=== PATIENT | female | born 1930 | race Caucasian/White ===

== ENCOUNTER → 2016-07-20 | Outpatient (CLI) | payer MEDICARE ==
[~2016-07-20] MED LIST: AC500T PO; ACHD5005 PO; ACTOS PO; BARIUM SUSPENSION 105% (LIQUID POLIBAR PLUS) 240 ML/DOSE PO ONE; BARIUM SUSPENSION 60% (LIQUID EZ PAQUE) 240 ML DOSE PO ONE; BSC10SU PR; CALC-80 PO; CLCX200C PO; CYCL10TA9 PO; DILT240C PO; DOCU-161 PO; ESOM20SU PO; FLC1T PO; GABA600T2 PO; GLIM4TAB PO; GLUC500C2 PO; HYDR-34 PO; LEVO125T6 PO; LISI10TA PO; MAGN-47 PO; MELO-195 PO; METH4TAB PO; MTF500T PO; MTX2.5T PO; OXB5T PO; PNT40TEC PO; PRAM0.252 PO; PRAM0.5T4 PO; PRAM1TAB3 PO; Prednisone PO; QUIN324C PO; RPGL2T PO; SNN187T PO; TRAM50TA2 PO; WRF2.5T PO
--- NOTE | 2016-07-20 11:45 | Diagnostic Imaging Report ---
EXAMINATION: Barium swallow double-contrast. INDICATION: Dysphagia Fluoroscopy time: One minute and 15 seconds TECHNIQUE: Logistics Administrator image of the chest was performed. Subsequently, the patient was given gas forming granules for oral ingestion followed by thick and thin barium to drink. Swallowing through the esophagus was observed with fluoroscopy and overhead images, as well as multiple spot images in the upright and prone positions, were taken. FINDINGS: Logistics Administrator image of the chest demonstrate hyperinflated clear lungs. No significant reflux is seen during the study. Some tertiary contractions and mild incomplete emptying of the esophagus particularly in the prone position are noted. This is commonly seen at the patient's age with no mechanical obstruction. The esophagus is normal in caliber and contour. There is no diverticulum or filling defect to suggest a mass. There is however mild irregularity in the distal esophagus mucosa may relate to esophagitis. There is a small hiatal hernia demonstrated. IMPRESSION: 1. Small hiatal hernia. 2. Mild motility dysfunction. 3. Suggestion of esophagitis. Dictated by: Dictated on workstation # [id number]
== END ==
LOC: RAD 10:30
PROVIDERS: ATTEND Internal Medicine
DX: R13.10 Dysphagia, unspecified (principal); K44.9 Diaphragmatic hernia without obstruction or gangrene
CPT/HCPCS: 74220

== ENCOUNTER → 2016-12-09 | Outpatient (CLI) | payer MEDICARE ==
[~2016-12-09] MED LIST changes: -BARIUM SUSPENSION 105% (LIQUID POLIBAR PLUS) 240 ML/DOSE PO ONE; -BARIUM SUSPENSION 60% (LIQUID EZ PAQUE) 240 ML DOSE PO ONE
--- NOTE | 2016-12-09 17:36 | Diagnostic Imaging Report ---
Two views of the right hip. INDICATION: Injury. FINDINGS: No fracture, dislocation, or radiopaque foreign body. There are mild sclerotic degenerative changes and mild joint space narrowing seen. Degenerative sclerotic changes in the right SI joint and symphysis pubis seen. IMPRESSION: Mild degenerative changes. Dictated by: Dictated on workstation # [id number]
--- NOTE | 2016-12-09 18:00 | Diagnostic Imaging Report ---
Three views of the lumbar spine. INDICATION: Trauma. FINDINGS: There is advanced degenerative change seen. The vertebral body heights are preserved. The alignment of the posterior spinal line is not well assessed as the posterior margin of L5 is not well delineated on this radiograph in part due to fusion hardware involving L5 and S1 levels. There is at other levels from T12 through L4 normal alignment of the posterior spinal line. There is straightening of the upper lumbar spine curvature. Severe degenerative changes at the L2-L3 and L3-L4 discs with vacuum phenomenon seen. There is also vacuum phenomenon and moderate degenerative changes at the L1-L2 and L4-L5 levels. Degenerative changes in the SI joints noted. IMPRESSION: L5-S1 fusion changes with hardware in place seen. These partially obscure and limit assessment of the posterior spinal line evaluation in the lower lumbar spine. Advanced degenerative disc changes worst at the L2-L3 level seen. Dictated by: Dictated on workstation # [id number]
== END ==
LOC: RAD 12:12
PROVIDERS: ATTEND Internal Medicine
DX: M51.36 Other intervertebral disc degeneration, lumbar region (principal); Z98.1 Arthrodesis status
CPT/HCPCS: 72100; 73502

== ENCOUNTER → 2017-01-31 | Emergency (ER) | payer MEDICARE ==
[~2017-01-31] VITALS: Ht 162.6 cm; Wt 79.4 kg
--- OUTSIDE RECORDS SUMMARY | 2017-01-31 10:21 | XMS REPORT | Continuity of Care Document ---
Author Author [facility] Organization [facility] Address Unknown Phone Unavailable Allergies Active Description Code Type Severity Reaction Onset Reported/Identified Relationship to Patient Clinical Status Yes No Known Drug Allergies [id number] Drug Allergy Unknown N/ A 09/12/2008 Medications Problems Date Dx Coded Attending Type Code Diagnosis Diagnosed By 09/20/2010 Ot 244.9 09/20/2010 Ot 250.00 09/20/2010 Ot 285.9 09/20/2010 Ot 305.1 09/20/2010 Ot 401.9 09/20/2010 Ot 714.0 09/20/2010 Ot V43.65 09/20/2010 Ot V54.81 09/20/2010 Ot V57.1 09/20/2010 Ot V57.21 2013 NOAH GARCIA MD E Ot 244.9 HYPOTHYROIDISM NOS 2013 NOAH GARCIA MD E Ot 250.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, TYPE II OR UNSPEC TY 2013 NOAH GARCIA MD E Ot 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 2013 NOAH GARCIA MD E Ot 305.1 TOBACCO USE DISORDER 2013 NOAH GARCIA MD E Ot 333.94 RESTLESS LEGS SYNDROME 2013 NOAH GARCIA MD E Ot 401.9 HYPERTENSION NOS 2013 NOAH GARCIA MD E Ot 496 CHR AIRWAY OBSTRUCT NEC 2013 NOAH GARCIA MD E Ot 530.81 ESOPHAGEAL REFLUX 2013 NOAH GARCIA MD Ot 714.0 RHEUMATOID ARTHRITIS 2013 NOAH GARCIA MD E Ot V04.81 ND FOR PROPHYLACTIC VACCIN AND INOCULATI 2013 NOAH GARCIA MD E Ot V43.65 KNEE JOINT REPLACEMENT STATUS 2013 NOAH GARCIA MD Ot V54.81 AFTERCARE FOLLOWING JOINT REPLACEMENT 2013 NOAH GARCIA MD Ot V57.89 REHABILITATION PROC NEC 11/29/2013 NOAH GARCIA MD Ot 244.9 HYPOTHYROIDISM NOS 11/29/2013 RADHA HERNANDEZ, NOAH Melchor Ot 250.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, TYPE II OR UNSPEC TY 11/29/2013 RADHA HERNANDEZ, NOAH Melchor Ot 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 11/29/2013 NOAH AGRCIA MD Ot 305.1 TOBACCO USE DISORDER 11/29/2013 NOAH GARCIA MD Ot 496 CHR AIRWAY OBSTRUCT NEC 11/29/2013 NOAH GARCIA MD Ot 530.81 ESOPHAGEAL REFLUX 11/29/2013 NOAH GARCIA MD Ot 564.00 UNSPEC CONSTIPATION 11/29/2013 NOAH GARCIA MD Ot 714.0 RHEUMATOID ARTHRITIS 11/29/2013 NOAH GARCIA MD Ot 715.09 GENERAL OSTEOARTHROSIS 11/29/2013 NOAH GARCIA MD Ot V57.89 REHABILITATION PROC NEC 11/29/2013 NOAH GARCIA MD Ot V58.78 AFTERCARE POST SURGERY MUSCULOSKELETAL S 12/12/2013 JUAN C BOCANEGRA DO Ot 244.9 HYPOTHYROIDISM NOS 12/12/2013 JUAN C BOCANEGRA DO Ot 250.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, TYPE II OR UNSPEC TY 12/12/2013 JUAN C BOCANEGRA DO Ot 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 12/12/2013 JUAN C BOCANEGRA DO Ot 338.18 OTHER ACUTE POSTOPERATIVE PAIN 12/12/2013 JUAN C BOCANEGRA DO Ot 401.9 HYPERTENSION NOS 12/12/2013 JUAN C BOCANEGRA DO Ot 496 CHR AIRWAY OBSTRUCT NEC 12/12/2013 JUAN C BOCANEGRA DO Ot 530.81 ESOPHAGEAL REFLUX 12/12/2013 JUAN C BOCANEGRA DO Ot 564.00 UNSPEC CONSTIPATION 12/12/2013 JUAN C BOCANEGRA DO Ot 714.0 RHEUMATOID ARTHRITIS 12/12/2013 JUAN C BOCANEGRA DO Ot 715.90 OSTEOARTHROS NOS-UNSPEC 12/12/2013 JUAN C BOCANEGRA DO Ot 724.00 SPINAL STENOSIS NOS 12/12/2013 JUAN C BOCANEGRA DO Ot 724.2 LUMBAGO 07/23/2014 Ot V76.12 07/23/2014 Ot 715.36 07/23/2014 Ot 717.40 07/23/2014 Ot 727.09 07/23/2014 Ot 959.11 07/23/2014 Ot 959.2 07/23/2014 Ot E000.8 07/23/2014 Ot E030 07/23/2014 Ot E849.0 07/23/2014 Ot E888.9 07/23/2014 Ot 715.33 07/23/2014 Ot 959.3 07/23/2014 Ot E000.8 07/23/2014 Ot E030 07/23/2014 Ot E849.0 07/23/2014 Ot E888.9 07/23/2014 Ot V58.61 07/23/2014 Ot V58.83 07/23/2014 Ot V58.61 07/23/2014 Ot V58.83 07/23/2014 Ot V58.61 07/23/2014 Ot V58.83 07/23/2014 Ot V58.61 07/23/2014 Ot V58.83 07/23/2014 Ot 793.81 07/23/2014 Ot V76.12 07/23/2014 Ot 793.80 07/23/2014 Ot 793.81 07/23/2014 Ot 793.81 07/23/2014 Ot 793.81 07/23/2014 Ot V67.09 07/23/2014 JUAN C BOCANEGRA DO Ot V67.9 07/23/2014 JUAN C BOCANEGRA DO Ot 729.5 07/25/2014 Ot V76.12 07/25/2014 Ot 715.36 07/25/2014 Ot 717.40 07/25/2014 Ot 727.09 07/25/2014 Ot 959.11 07/25/2014 Ot 959.2 07/25/2014 Ot E000.8 07/25/2014 Ot E030 07/25/2014 Ot E849.0 07/25/2014 Ot E888.9 07/25/2014 Ot 715.33 07/25/2014 Ot 959.3 07/25/2014 Ot E000.8 07/25/2014 Ot E030 07/25/2014 Ot E849.0 07/25/2014 Ot E888.9 07/25/2014 Ot V58.61 07/25/2014 Ot V58.83 07/25/2014 Ot V58.61 07/25/2014 Ot V58.83 07/25/2014 Ot V58.61 07/25/2014 Ot V58.83 07/25/2014 Ot V58.61 07/25/2014 Ot V58.83 07/25/2014 Ot 793.81 07/25/2014 Ot V76.12 07/25/2014 Ot 793.80 07/25/2014 Ot 793.81 07/25/2014 Ot 793.81 07/25/2014 Ot 793.81 07/25/2014 Ot V67.09 07/25/2014 JUAN C BOCANEGRA DO Ot V67.9 07/25/2014 JUAN C BOCANEGRA DO Ot 729.5 07/26/2014 Ot V76.12 07/26/2014 Ot 715.36 07/26/2014 Ot 717.40 07/26/2014 Ot 727.09 07/26/2014 Ot 959.11 07/26/2014 Ot 959.2 07/26/2014 Ot E000.8 07/26/2014 Ot E030 07/26/2014 Ot E849.0 07/26/2014 Ot E888.9 07/26/2014 Ot 715.33 07/26/2014 Ot 959.3 07/26/2014 Ot E000.8 07/26/2014 Ot E030 07/26/2014 Ot E849.0 07/26/2014 Ot E888.9 07/26/2014 Ot V58.61 07/26/2014 Ot V58.83 07/26/2014 Ot V58.61 07/26/2014 Ot V58.83 07/26/2014 Ot V58.61 07/26/2014 Ot V58.83 07/26/2014 Ot V58.61 07/26/2014 Ot V58.83 07/26/2014 Ot 793.81 07/26/2014 Ot V76.12 07/26/2014 Ot 793.80 07/26/2014 Ot 793.81 07/26/2014 Ot 793.81 07/26/2014 Ot 793.81 07/26/2014 Ot V67.09 07/26/2014 JUAN C BOCANEGRA DO Ot V67.9 07/26/2014 JUAN C BOCANEGRA DO Ot 729.5 07/31/2014 JUAN C BOCANEGRA DO Ot 786.50 08/07/2014 JUAN C BOCANEGRA DO Ot 786.50 07/20/2016 Ot 793.80 UNSPEC ABNORMAL MAMMOGRAM 07/20/2016 Ot 793.81 MAMMOGRAPHIC MICROCLACIFICATION 07/20/2016 Ot 793.81 MAMMOGRAPHIC MICROCLACIFICATION 07/20/2016 Ot 793.81 MAMMOGRAPHIC MICROCLACIFICATION 07/20/2016 Ot V67.09 SURGERY FOLLOW-UP, OTHER SURGERY 07/20/2016 JUAN C BOCANEGRA DO Ot V67.9 FOLLOW-UP EXAM NOS 07/20/2016 JUAN C BOCANEGRA DO Ot 729.5 PAIN IN LIMB 07/20/2016 JUAN C BOCANEGRA DO Ot 786.50 CHEST PAIN NOS 08/04/2016 JUAN C BOCANEGRA DO Ot K44.9 DIAPHRAGMATIC HERNIA WITHOUT OBSTRUCTION 08/04/2016 JUAN C BOCANEGRA DO Ot R13.10 DYSPHAGIA, UNSPECIFIED 12/21/2016 JUAN C BOCANEGRA DO Ot M51.36 OTHER INTERVERTEBRAL DISC DEGENERATION , 12/21/2016 JUAN C BOCANEGRA DO Ot Z98.1 ARTHRODESIS STATUS Procedures Results Encounters ACCT No. Visit Date/Time Discharge Status Pt. Type Provider Facility Loc./Unit Complaint [id number] 12/09/2016 12:12:00 2016 23:59:59 CLS Outpatient JUAN C BOCANEGRA DO [facility] RAD TRAUMA [id number] 07/20/2016 10:30:00 2016 23:59:59 CLS Outpatient JUAN C BOCANEGRA DO [facility] RAD DYSPHAGIA [id number] 07/25/2014 06:30:00 2014 23:59:59 CLS Outpatient JUAN C BOCANEGRA DO [facility] CARD CHEST PAIN [id number] 12/07/2013 19:15:00 2013 13:20:00 DIS Inpatient JUAN C BOCANEGRA DO [facility] SURGICAL POST OP BACK PAIN [id number] 11/24/2013 11:58:00 2013 12:45:00 DIS Inpatient NOAH GARCIA MD [facility] IRF POST SURGERY [id number] 05/17/2013 14:59:00 2012 23:59:59 CLS Outpatient JUAN C BOCANEGRA DO [facility] RAD CALF PAIN [id number] 03/13/2013 15:32:00 2012 13:51:00 DIS Inpatient RADHA HERNANDEZ, NOAH Melchor [facility] IRF R TOTAL KNEE REPLACMENT THERAPY [id number] 11/21/2012 13:17:00 2012 23:59:59 CLS Outpatient JUAN C BOCANEGRA DO [facility] RAD SIX MONTH FOLLOW-UP [id number] 07/23/2014 11:14:00 Document Registration [id number] 03/14/2012 12:58:00 Document Registration [id number] 09/09/2011 12:15:00 Document Registration [id number] 07/29/2011 10:13:00 Document Registration [id number] 02/10/2011 14:01:00 Document Registration [id number] 01/22/2011 13:07:00 Document Registration [id number] 10/02/2010 14:30:00 Document Registration [id number] 09/29/2010 10:55:00 Document Registration [id number] 09/25/2010 12:30:00 Document Registration [id number] 09/22/2010 10:00:00 Document Registration [id number] 09/14/2010 13:45:00 Document Registration [id number] 09/04/2009 14:54:00 Document Registration [id number] 07/22/2009 11:46:00 Document Registration [id number] 05/03/2009 14:09:00 Document Registration [id number] 04/26/2009 14:30:00 Document Registration
--- NOTE | 2017-01-31 10:58 | Diagnostic Imaging Report ---
INDICATION: Pain and decreased range of motion. FINDINGS: There is moderate arthrosis of the acromioclavicular joint. There are also degenerative changes of the glenohumeral joint. There are bone anchors in the humeral head. There is no fracture or dislocation. The right lung is clear. Soft tissues are unremarkable. IMPRESSION: Degenerative changes, otherwise unremarkable. Dictated by: Dictated on workstation # [id number]
--- NOTE | 2017-01-31 11:05 | ED Fall/Injury ---
General Chief Complaint: Head/Cervical Problems Stated Complaint: FALL/R SHOULDER PAIN Nursing Triage Note: PT TO ED 8 PER W/C, STATES FELL 2-3WEEKS AGO AND HAS CONTINUED WORSENING PAIN IN R SIDE OF NECK AND R POST SHOULDER AREA Source: patient Exam Limitations: other (LIMITED HISTORIAN ABOUT PMH AND CURRENT COMPLAINT) History of Present Illness Time seen by provider: 10:30 Initial Comments PT ARRIVES VIA POV FROM HOME STATES SHE FELL 2-3 WEEKS AGO WHILE IN HER KITCHEN PT STATES SHE DOESN'T KNOW WHAT MADE HER FALL, BUT THINKS SHE LANDED ON HER BUTTOCKS, AND MIGHT HAVE THEN HIT THE BACK OF HER HEAD--NOT EXACTLY SURE/DOESN' T REMEMBER DETAILS, BUT DENIES LOSS OF CONSCIOUSNESS PT C/O PERSISTENT PAIN TO RIGHT POSTERIOR NECK AND POSTERIOR SHOULDER/SCAPULAR AREA SINCE THEN NO PARESTHESIAS OR MOTOR DEFICITS NO VISION CHANGES NO NAUSEA/VOMITING HAS NOT SOUGHT CARE UNTIL TODAY, AND SYMPTOMS ARE NO DIFFERENT IN ANY WAY TOOK 2 HYDROCODONE LAST NIGHT BUT HAS NOT TAKEN ANYTHING FOR PAIN TODAY. STATES HYDROCODONE HELPS PT CHRONICALLY TAKES VARIOUS PAIN MEDICATIONS, AND MUSCLE RELAXANTS--STATES SHE HAS "3 KINDS OF ARTHRITIS" PCP: DR. BOCANEGRA Allergies and Home Medications Allergies Coded Allergies: No Known Drug Allergies (Verified , 09/12/08) Home Medications Docusate Sodium 100 Mg Capsule, 100 MG PO, (Reported) Folic Acid 1 Mg Tab, 1 MG PO DAILY, (Reported) Gabapentin 600 Mg Tablet, 600 MG PO BID, (Reported) Glimepiride 4 Mg Tablet, 4 MG PO BID, (Reported) Hydrocodone Bit/Acetaminophen 1 Tab Tab, 1 TAB PO Q4HR PRN for PAIN, #60 Prescribed by: NOAH GARCIA on 11/29/13 0839 Levothyroxine Sodium 125 Mcg Tablet, 1 EACH PO DAILY, (Reported) Lisinopril 10 Mg Tablet, 10 MG PO DAILY, (Reported) Pramipexole Di-Hcl 0.5 Mg Tablet, 0.5 MG PO 1 TAB DAILY @1600, (Reported) Pramipexole Di-Hcl 1 Mg Tablet, 1 MG PO HS, #30 Prescribed by: SERGO MERCADO on 12/08/13 0117 [Prednisone] 5 MG TAB, 5 MG PO DAILY@0700 for 5 Days Prescribed by: JUAN C BOCANEGRA on 12/12/13 1004 Constitutional: no symptoms reported Eyes: No Symptoms Reported Ears, Nose, Mouth, Throat: no symptoms reported Respiratory: no symptoms reported Cardiovascular: no symptoms reported Gastrointestinal: no symptoms reported Genitourinary: no symptoms reported Musculoskeletal: see HPI Skin: no symptoms reported Psychiatric/Neurological: No Symptoms Reported, Denies Headache, Denies Numbness, Denies Paresthesia, Denies Seizure, Denies Tingling, Denies Tremors, Denies Weakness Past Cggfboi-Wrwrzs-Lctxal Hx Patient Social History Alcohol Use: Denies Use Recreational Drug Use: No Smoking Status: Current Everyday Smoker (1 PPD) Type Used: Cigarettes Recent Foreign Travel: No Contact w/Someone Who Travel: No Recent Infectious Disease Expo: No Recent Hopitalizations: Yes (L TKR IN [place]) Immunizations Up To Date Date of Pneumonia Vaccine: Feb 12, 2013 Date of Influenza Vaccine: Mar 14, 2013 Surgeries HX Surgeries: Yes (APPY, HYSTERECTOMY HEMORRHOIDECTOMY, ENDOCRINE SURGERY, BACK SURGERY; RIGHT TOTAL KNEE REPLACEMENT) Surgeries: Appendectomy, Hysterectomy, Joint Replacement, Orthopedic, Rectal Respiratory Hx Respiratory Disorders: Yes Respiratory Disorders: COPD Cardiovascular Hx Cardiac Disorders: Yes Cardiac Disorders: Hypertension, Valvular Heart Disease Neurological Hx Neurological Disorders: No Reproductive System Hx Reproductive Disorders: No Sexually Transmitted Disease: No HIV/AIDS: No Female 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, 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 Genitourinary Hx Genitourinary Disorders: Yes Genitourinary Disorders: Bladder Infection Gastrointestinal Hx Gastrointestinal Disorders: Yes Gastrointestinal Disorders: Hemorrhoids Musculoskeletal Hx Musculoskeletal Disorders: Yes (RHEUMATOID AND OSTEOARTHRITIS) Musculoskeletal Disorders: Arthritis, Chronic Back Pain Endocrine Hx Endocrine Disorders: Yes Endocrine Disorders: Hypothyroidsim, Diabetes, Non-Insulin dep HEENT HX ENT Disorders: No Cancer Hx Cancer: No Psychosocial Hx Psychiatric Problems: No Integumentary HX Skin/Integumentary Disorder: No Blood Transfusions Hx Blood Disorders: No Adverse Reaction to a Blood Tr: No Family Medical History Family Medial History: Cancer 19 FATHER (luekemia) G8 SISTER (tumor) Family history: Arthritis G8 BROTHER Family history: Cardiovascular disease 19 MOTHER Family history: Hypertension 19 MOTHER Physical Exam Vital Signs Vital Sign - Last 12Hours 01/31/17 10:25 Temp 97.7 Pulse 71 Resp 16 B/P (MAP) 151/72 Pulse Ox 96 Capillary Refill : Less Than 3 Seconds General Appearance: WD/WN, no apparent distress, other (WALKS WITH A CANE WITHOUT DIFFICULTY. PT VERY TALKATIVE AND DOES NOT APPEAR TO BE IN ANY DISCOMFORT. WELL-GROOMED. STRONG ODOR OF CIGARETTES) Neck: full range of motion, supple, tender lateral (ON RIGHT), No tender midline Cardiovascular: regular rate, rhythm, systolic murmur (3/6) Respiratory: chest non-tender, normal breath sounds, no respiratory distress, no accessory muscle use Peripheral Pulses: 1+ Dorsalis Pedis (R), 1+ Left Dors-Pedis (L), 1+ Radial Pulses (R), 1+ Radial Pulses (L) Gastrointestinal: normal bowel sounds, non tender, soft Back: no CVA tenderness, no vertebral tenderness, other (TENDERNESS TO RIGHT TRAPEZIUS MUSCLE AREA AND SUPERIOR ASPECT OF RIGHT SCAPULA AND POSTERIOR ASPECT OF RIGHT SHOULDER) Extremities: normal inspection, no pedal edema, no calf tenderness, normal capillary refill Neurologic/Psychiatric: drop forger II-XII nml as tested, no motor/sensory deficits, alert, normal mood/affect, oriented x 3 Skin: normal color, warm/dry Tenisha Coma Score Best Eye Response: (4) Open Spontaneously Best Verbal Response: (5) Oriented Best Motor Response: (6) Obeys Commands Tenisha Total: 15 Progress/Results/Core Measures Results/Orders My Orders Orders - ELDER PARRY DO Ct Head/Cervical Spine Wo (01/31/17 10:35) Shoulder, Right, 3 Views (01/31/17 10:35) Vital Signs/I&O Vital Sign - Last 12Hours 01/31/17 10:25 Temp 97.7 Pulse 71 Resp 16 B/P (MAP) 151/72 Pulse Ox 96 Blood Pressure Mean: 98 Diagnostic Imaging Comments XRAYS RIGHT SHOULDER--NO ACUTE PROCESS, DEGENERATIVE CHANGES--PER RADIOLOGIST REPORT @ 1105 CT HEAD AND CERVICAL SPINE--NO ACUTE PROCESS, CHRONIC DEGENERATIVE CHANGES IN CERVICAL SPINE--PER DR. KUMAR VIA PHONE AT 1153 Reviewed: Reviewed by Me Departure Impression Impression: Primary Impression: Status post fall Additional Impressions: Cervical myofascial strain Posterolateral cervical muscle strain Strain of cervical portion of right trapezius muscle Head contusion Disposition: 01 HOME, SELF-CARE Condition: Stable Departure-Patient Inst. Referrals: JUAN C BOCANEGRA DO (PCP/Family) Primary Care Physician Patient Instructions: Minor Head Injury (DC), Cervical Muscle Strain (DC), Neck Sprain (DC) Add. Discharge Instructions: CONTINUE YOUR REGULAR MEDICATIONS, INCLUDING YOUR PAIN MEDICATIONS PRESCRIBED FOLLOW UP WITH YOUR DR IN 7-10 DAYS FOR FURTHER CARE All discharge instructions reviewed with patient and/or family. Voiced understanding. ELDER PARRY DO Jan 31, 2017 11:05
[2017-01-31 12:04] VITALS: BP 151/72
--- NOTE | 2017-01-31 12:09 | Diagnostic Imaging Report ---
PROCEDURE: CT head and CT cervical spine without contrast. TECHNIQUE: Multiple contiguous axial images were obtained through the brain and cervical spine without the use of intravenous contrast. Sagittal and coronal reformations through the cervical spine were then performed. INDICATION: Fell, head and neck pain. COMPARISON: No previous studies available for comparison. CT HEAD: There is no mass, shift of the midline or hemorrhage to suggest an acute intracranial abnormality. The ventricles are not abnormally dilated. There is cortical atrophy. The degree of atrophy is consistent with the patient's age. There are also vague areas of low density in the periventricular white matter bilaterally. These findings are nonspecific but may be secondary to encephalomalacia from microvascular ischemia. The bone windows show no sign of a fracture or of a destructive lesion. There is mucosal thickening of the ethmoid sinuses. The sinuses are otherwise generally clear. The orbits are symmetrical and within normal limits. IMPRESSION: 1. There is no evidence for an acute intracranial abnormality. 2. If clinical concern regarding an underlying abnormality persists, MRI would be recommended for further study. 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 There is 8.8 x 1.1 x 1.4 cm lucency near the interface of the C5 and C6 vertebral bodies. This is of uncertain etiology. This does not have the appearance of a destructive lesion although the margins of this are not entirely smooth. This could represent a benign process such as a cyst. It would be less likely that this is secondary to a marrow replacement process such as neoplastic disease. If further imaging is desired, then MRI would be recommended. There is narrowing of the disc space at C6-7. There is also mild central stenosis at this level and there is narrowing of the neural foramen bilaterally, particularly on the right. There remainder of the cervical spine is unremarkable for a high-grade central stenosis. There is no fracture or acute bony abnormality appreciated. There is no sign of retropharyngeal edema. The thyroid gland is not well-visualized and may be atrophic or surgically absent. The lung apices are clear. IMPRESSION: 1. There is no evidence for acute bony abnormality. 2. 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 3. The area of lucency within the fused bodies of C5 and C6 is of uncertain etiology. Considerations and recommendations as above. 4. There is degenerative disc and bony disease at C6-7 and there is mild central stenosis at this level with narrowing of the neural foramen bilaterally, particularly on the right. 5. These results were discussed with Dr. Gonzalez in the ER at the time of this dictation. Dictated by: Dictated on workstation # [id number]
== END ==
LOC: EDUNIT# 10:14 → ER 10:16
DX: S16.1XXA Strain of muscle, fascia and tendon at neck level, initial encounter (principal); S29.012A Strain of muscle and tendon of back wall of thorax, initial encounter; S00.93XA Contusion of unspecified part of head, initial encounter; E03.9 Hypothyroidism, unspecified; E11.9 Type 2 diabetes mellitus without complications; M06.9 Rheumatoid arthritis, unspecified; I10 Essential (primary) hypertension; J44.9 Chronic obstructive pulmonary disease, unspecified; F17.210 Nicotine dependence, cigarettes, uncomplicated; Z96.661 Presence of right artificial ankle joint; Z90.710 Acquired absence of both cervix and uterus; W18.30XA Fall on same level, unspecified, initial encounter
CPT/HCPCS: 70450; 72125; 73030; 99282

== ENCOUNTER 2017-07-07 21:48 | Observation (INO) | payer MEDICARE ==
[~2017-07-07] VITALS: Ht 162.6 cm; Wt 72.6 kg
[~2017-07-07 21:48] MED LIST changes: -ACYC800T PO; -ASPI-983 PO; -CELE-63 PO; -DOCU100C37 PO; -FOLI1TAB24 PO; -GABA-488 PO; -HYDR-3820 PO; -LISI10TA2 PO; -METH2.5T PO; -NITR0.4T42 SL; -OXYB5TAB9 PO; -PRAM0.5T2 PO
[2017-07-07 22:08] LABS: BASOPHILS % (AUTO) 1 % (0-10); EOSINOPHILS # (AUTO) 0.1 10^3/uL (0.0-0.3); EOSINOPHILS % (AUTO) 1 % (0-10); HEMATOCRIT 37 % (35-52); HEMOGLOBIN 12.7 G/DL (11.5-16.0); LYMPHOCYTES % (AUTO) 15 % (12-44); MEAN CORPUSCULAR HEMOGLOBIN 32 PG (25-34); MEAN CORPUSCULAR HGB CONC 34 G/DL (32-36); MEAN CORPUSCULAR VOLUME 93 FL (80-99); MEAN PLATELET VOLUME 9.9 FL (7.4-10.4); MONOCYTES # (AUTO) 0.6 X 10^3 (0.0-1.0); MONOCYTES % (AUTO) 9 % (0-12); NEUTROPHILS # (AUTO) 4.8 X 10^3 (1.8-7.8); NEUTROPHILS % (AUTO) 75 % (42-75); PLATELET COUNT 128 10^3/uL (130-400); RED BLOOD COUNT 3.98 10^6/uL (4.35-5.85); RED CELL DISTRIBUTION WIDTH 13.3 % (10.0-14.5); WHITE BLOOD COUNT 6.4 10^3/uL (4.3-11.0)
[2017-07-07 22:22] LABS: ALANINE AMINOTRANSFERASE 27 U/L (0-55); ALBUMIN 3.3 GM/DL (3.2-4.5); ALKALINE PHOSPHATASE 72 U/L (40-136); BILIRUBIN,TOTAL 0.7 MG/DL (0.1-1.0); BUN/CREATININE RATIO 35; CALCIUM 8.2 MG/DL (8.5-10.1); CARBON DIOXIDE 24 MMOL/L (21-32); CHLORIDE 100 MMOL/L (98-107); CREATINE KINASE 169 U/L (29-168); CREATININE SERUM 0.78 MG/DL (0.60-1.30); GFR ESTIMATED > 60; GLUCOSE 171 MG/DL (70-105); POTASSIUM 4.4 MMOL/L (3.6-5.0); SODIUM 133 MMOL/L (135-145)
--- NOTE | 2017-07-07 22:40 | ED General ---
General Chief Complaint: Trauma-Non Activation Stated Complaint: FALL Nursing Triage Note: pt here per ems for multiple falls over the past couple days. pt bs for ems is 58. ems reports giving 1 amp d50 iv in route. Nursing Sepsis Screen: No Definite Risk Source of Information: Patient Exam Limitations: No Limitations History of Present Illness Date Seen by Provider: Jul 07, 2017 Time Seen by Provider: 21:55 Initial Comments Here with report of fall yesterday and was seen by her primary care Dr. enciso. He sent her for x-ray of the right hip which was negative. Currently she went home after that sitting in the chair when her daughter left. Later she was found on the floor next to her bed but not in the bed. Patient does not know how she got onto the floor. She denies pain although does report weakness as well as feels like she is not clearheaded. She is on medications for a new onset shingles outbreak. Denies dysuria or diarrhea. Denies breathing problems or chest pain. Location Injury Occurred: home residence Timing/Duration: 4-6 Hours Severity: Mild Associated Systoms: No Cough, No Fever/Chills, Malaise, No Nausea/Vomiting, No Shortness of Air, Weakness Allergies and Home Medications Allergies Coded Allergies: No Known Drug Allergies (Verified , 09/12/08) Home Medications Docusate Sodium 100 Mg Capsule, 100 MG PO, (Reported) Folic Acid 1 Mg Tab, 1 MG PO DAILY, (Reported) Gabapentin 600 Mg Tablet, 600 MG PO BID, (Reported) Glimepiride 4 Mg Tablet, 4 MG PO BID, (Reported) Hydrocodone Bit/Acetaminophen 1 Tab Tab, 1 TAB PO Q4HR PRN for PAIN, #60 Prescribed by: NOAH GARCIA on 11/29/13 0839 Levothyroxine Sodium 125 Mcg Tablet, 1 EACH PO DAILY, (Reported) Lisinopril 10 Mg Tablet, 10 MG PO DAILY, (Reported) Pramipexole Di-Hcl 0.5 Mg Tablet, 0.5 MG PO 1 TAB DAILY @1600, (Reported) Pramipexole Di-Hcl 1 Mg Tablet, 1 MG PO HS, #30 Prescribed by: SERGO MERCADO on 12/08/13 0117 [Prednisone] 5 MG TAB, 5 MG PO DAILY@0700 for 5 Days Prescribed by: JUAN C BOCANEGRA on 12/12/13 1004 Constitutional: see HPI, No chills, No fever, weakness EENTM: no symptoms reported Respiratory: No cough, No short of breath Cardiovascular: No chest pain, No edema, syncope Gastrointestinal: No diarrhea, No vomiting Genitourinary: no symptoms reported Musculoskeletal: see HPI All Other Systems Reviewed Negative Unless Noted: Yes Past Hwxzgeq-Dshmmh-Xfskpr Hx Patient Social History Alcohol Use: Occasionally Uses Alcohol Beverage of Choice: Beer Recreational Drug Use: No Smoking Status: Current Everyday Smoker Type Used: Cigarettes Recent Foreign Travel: No Contact w/Someone Who Travel: No Recent Infectious Disease Expo: No Recent Hopitalizations: Yes (L TKR IN [place]) Physical Abuse: No Sexual Abuse: No Mistreated: No Fear: No Immunizations Up To Date Date of Pneumonia Vaccine: Feb 12, 2013 Date of Influenza Vaccine: Mar 14, 2013 Surgeries History of Surgeries: Yes (APPY, HYSTERECTOMY HEMORRHOIDECTOMY, ENDOCRINE SURGERY, BACK) Surgeries: Appendectomy, Hysterectomy, Joint Replacement, Orthopedic, Rectal Respiratory History of Respiratory Disorde: Yes Respiratory Disorders: COPD Cardiovascular History of Cardiac Disorders: Yes Cardiac Disorders: Hypertension, Valvular Heart Disease Neurological History of Neurological Disord: No Reproductive System Hx Reproductive Disorders: No Sexually Transmitted Disease: No HIV/AIDS: No Female Reproductive Disorders: Denies MANAGER History: Hysterectomy, Menopausal Genitourinary Genitourinary Disorders: Bladder Infection Gastrointestinal History of Gastrointestinal Di: Yes Gastrointestinal Disorders: Hemorrhoids Musculoskeletal History of Musculoskeletal Dis: Yes (RHEUMATOID AND OSTEOARTHRITIS, RLS) Musculoskeletal Disorders: Arthritis, Chronic Back Pain Endocrine History of Endocrine Disorders: Yes Endocrine Disorders: Hypothyroidsim, Diabetes, Non-Insulin dep Cancer History of Cancer: No Psychosocial History of Psychiatric Problem: No Suicide Risk Score: 0 Integumentary History of Skin or Integumenta: No Blood Transfusions History of Blood Disorders: No Adverse Reaction to a Blood Tr: No Reviewed Nursing Assessment Reviewed/Agree w Nursing PMH: Yes Family Medical History Family Medial History: Cancer 19 FATHER (luekemia) G8 SISTER (tumor) Family history: Arthritis G8 BROTHER Family history: Cardiovascular disease 19 MOTHER Family history: Hypertension 19 MOTHER Physical Exam Vital Signs Vital Sign - Last 12Hours Capillary Refill : Less Than 3 Seconds General Appearance: No Apparent Distress, WD/WN HEENT: PERRL/EOMI, Pharynx Normal Neck: Non Tender, Supple Respiratory: Lungs Clear, Normal Breath Sounds Cardiovascular: Regular Rate, Rhythm, No Murmur Gastrointestinal: Non Tender, Soft Back: Normal Inspection, No CVA Tenderness, No Vertebral Tenderness Extremity: Normal Range of Motion, Non Tender, Other (denies pain in her hips but is not sure. Does move both lower extremities without difficulty.) Neurologic/Psychiatric: Alert, Oriented x3 Skin: Warm/Dry, Rash (large herpes zoster rash involving the left flank and hip from midline back around to the front midline.) Progress/Results/Core Measures Suspected Sepsis Recent Fever Within 48 Hours: No Infection Criteria Present: None New/Unexplained Altered Menta: No Sepsis Screen: No Definite Risk Sepsis Diagnosis: SIRS Temperature:98.0 Pulse: 79 Respiratory Rate: 20 Laboratory Tests 07/07/17 21:55: White Blood Count 6.4 Blood Pressure 154 /69 Mean: 97 Laboratory Tests 07/07/17 21:55: Creatinine 0.78, Platelet Count 128L, Total Bilirubin 0.7 Results/Orders Lab Results Laboratory Tests Test 07/07/17 21:55 07/07/17 23:05 Range/Units White Blood Count 6.4 4.3-11.0 10^3/uL Red Blood Count 3.98 L 4.35-5.85 10^6/uL Hemoglobin 12.7 11.5-16.0 G/DL Hematocrit 37 35-52 % Mean Corpuscular Volume 93 80-99 FL Mean Corpuscular Hemoglobin 32 25-34 PG Mean Corpuscular Hemoglobin Concent 34 32-36 G/DL Red Cell Distribution Width 13.3 10.0-14.5 % Platelet Count 128 L 130-400 10^3/uL Mean Platelet Volume 9.9 7.4-10.4 FL Neutrophils (%) (Auto) 75 42-75 % Lymphocytes (%) (Auto) 15 12-44 % Monocytes (%) (Auto) 9 0-12 % Eosinophils (%) (Auto) 1 0-10 % Basophils (%) (Auto) 1 0-10 % Neutrophils # (Auto) 4.8 1.8-7.8 X 10^3 Lymphocytes # (Auto) 1.0 1.0-4.0 X 10^3 Monocytes # (Auto) 0.6 0.0-1.0 X 10^3 Eosinophils # (Auto) 0.1 0.0-0.3 10^3/uL Basophils # (Auto) 0.0 0.0-0.1 10^3/uL Sodium Level 133 L 135-145 MMOL/L Potassium Level 4.4 3.6-5.0 MMOL/L Chloride Level 100 98-107 MMOL/L Carbon Dioxide Level 24 21-32 MMOL/L Anion Gap 9 5-14 MMOL/L Blood Urea Nitrogen 27 H 7-18 MG/DL Creatinine 0.78 0.60-1.30 MG/DL Estimat Glomerular Filtration Rate > 60 BUN/Creatinine Ratio 35 Glucose Level 171 H 70-105 MG/DL Calcium Level 8.2 L 8.5-10.1 MG/DL Total Bilirubin 0.7 0.1-1.0 MG/DL Aspartate Amino Transf (AST/SGOT) 28 5-34 U/L Alanine Aminotransferase (ALT/SGPT) 27 0-55 U/L Alkaline Phosphatase 72 40-136 U/L Total Creatine Kinase 169 H 29-168 U/L C-Reactive Protein High Sensitivity 2.34 H 0.00-0.50 MG/DL Total Protein 6.0 L 6.4-8.2 GM/DL Albumin 3.3 3.2-4.5 GM/DL Urine Color YELLOW Urine Clarity CLEAR Urine pH 5 5-9 Urine Specific [place] 1.020 1.016-1.022 Urine Protein 2+ H NEGATIVE Urine Glucose (UA) 2+ H NEGATIVE Urine Ketones 1+ H NEGATIVE Urine Nitrite NEGATIVE NEGATIVE Urine Bilirubin NEGATIVE NEGATIVE Urine Urobilinogen NORMAL NORMAL MG/DL Urine Leukocyte Esterase 1+ H NEGATIVE Urine RBC (Auto) NEGATIVE NEGATIVE Urine RBC NONE /HPF Urine WBC 0-2 /HPF Urine Squamous Epithelial Cells 0-2 /HPF Urine Crystals PRESENT H /LPF Urine Calcium Oxalate Crystals LARGE H /LPF Urine Bacteria NEGATIVE /HPF Urine Casts NONE /LPF Urine Mucus NEGATIVE /LPF Urine Culture Indicated NO My Orders Orders - KIARA ELLISON MD Cbc With Automated Diff (07/07/17 22:01) Comprehensive Metabolic Panel (07/07/17 22:01) Creatine Kinase (07/07/17 22:01) Hs C Reactive Protein (07/07/17 22:01) Ua Culture If Indicated (07/07/17 22:01) Ct Head Wo (07/07/17 22:01) Ekg Tracing (07/07/17 22:40) Hydrocodone/Apap 7.5/325 Tab (Lortab 7. (07/08/17 00:11) Vital Signs/I&O Vital Sign - Last 12Hours 07/07/17 07/07/17 22:06 22:06 Temp 98.0 98.0 Pulse 79 79 Resp 20 20 B/P (MAP) 154/69 (97) 154/69 (97) Pulse Ox 96 96 Intake and Output 07/08/17 00:00 Intake Total 1000 ml Balance 1000 ml Capillary Refill : Less Than 3 Seconds Blood Pressure Mean: 97 Progress Note : Progress Note Seen and evaluated. IV by EMS with 1 L normal saline running. Labs, UA, CT head and x-rays of the pelvis and hips bilateral. Patient's family like to hold on the x-ray of the pelvis and hips given her x-ray today was negative. She has had a fall in the interim that she is unable to completely describe which was the reason for ordering x-rays. Given that she is moving both lower extremities without the appearance of difficulty or pain we will hold on x-rays per their request at this time. Reevaluate that as time goes on to see if she needs it. Monitor patient. 0005: Evaluation complete and no significant findings other than persistent weakness and bilateral lower extremity pain noted. Does have history of restless leg syndrome. She is unsure she can walk. We did attempt to walk her and she is unable to take more than 2 steps without not being a little to stand anymore. Due to the concerns of weakness and the significant large shingles outbreak on the left flank, we will admit the patient at least for observation. Patient is very concerned about observation visit and would like inpatient. We will have care management team evaluate for feasibility of inpatient visit. Patient also may benefit from inpatient rehabilitation. Hydrocodone 7.5/325 one tab by mouth given for pain and we will continue this. Patient is also very concerned about medication cost and has brought her meds with her and would like to have those verified that she can take her own home medicines to decrease cost if possible. She'll discuss that with the inpatient doctor in the morning as well as we will discuss this with admitting nursing staff tonight. ECG Initial ECG Impression Date: Jul 07, 2017 Initial ECG Impression Time: 23:08 Initial ECG Rate: 102 Initial ECG Rhythm: S.Tach Comment Sinus tachycardia with LVH and interventricular conduction delay. Left axis deviation. No evidence of ST elevation DC. Change from August 2008 with increasing interventricular conduction delay and worsening left axis deviation. Interpreted by me. Diagnostic Imaging Diagonstic Imaging: CT Plain Films/CT/US/NM/MRI: head Comments No acute intracranial process. Generalized atrophy and stable chronic small vessel disease. Departure Communication (Admissions) Time/Spoke to Admitting Phy: 00:04 Impression Impression: Primary Impression: Shingles outbreak Qualified Codes: B02.8 - Zoster with other complications Additional Impressions: Generalized weakness Bilateral leg pain Disposition: ADMITTED INPATIENT Condition: Stable Admissions Decision to Admit Reason: Admit from ER (General) Decision to Admit/Date: Jul 08, 2017 Time/Decision to Admit Time: 00:04 Departure-Patient Inst. Referrals: JUAN C BOCANEGRA DO (PCP/Family) Primary Care Physician KIARA ELLISON MD Jul 07, 2017 22:40
[2017-07-07 23:10] LABS: BILIRUBIN,URINE NEGATIVE (NEGATIVE); CLARITY,URINE CLEAR; COLOR,URINE YELLOW; GLUCOSE, URINE (UA) 2+ (NEGATIVE); KETONES,URINE 1+ (NEGATIVE); LEUKOCYTE ESTERASE ,URINE 1+ (NEGATIVE); NITRITE,URINE NEGATIVE (NEGATIVE); PH,URINE 5 (5-9); PROTEIN,URINE 2+ (NEGATIVE); UROBILINOGEN,URINE NORMAL (NORMAL)
[2017-07-07 23:19] LABS: BACTERIA,URINE NEGATIVE /HPF; CALCIUM OXALATE CRYSTALS,UR LARGE /LPF; SQUAMOUS EPITHELIAL CELL,UR 0-2 /HPF; WBC,URINE 0-2 /HPF
[2017-07-08] MEDS ORDERED: HYDROcodone/APAP 7.5 MG/325 MG (LORTAB, LORCET PLUS) TABLET PO ONE (00:11)
[2017-07-08] MEDS ORDERED: HYDROcodone/APAP 7.5 MG/325 MG (LORTAB, LORCET PLUS) TABLET PO STA (00:42)
[2017-07-08 01:40] VITALS: BP 104/52
[2017-07-08] MEDS ORDERED: HYDROcodone/APAP 5 MG/325 MG (LORTAB) TAB PO PRN (02:30)
[2017-07-08] MEDS: NS IV 1000 ML 1,000 ML IV SCH ×2 (02:30→16:45)
[2017-07-08 04:25] VITALS: BP_SYST 113; BP_SYST 146; BP_DIAS 58; BP_DIAS 74
[2017-07-08 06:26] LABS: BASOPHILS % (AUTO) 1 % (0-10); EOSINOPHILS # (AUTO) 0.1 10^3/uL (0.0-0.3); EOSINOPHILS % (AUTO) 2 % (0-10); HEMATOCRIT 38 % (35-52); HEMOGLOBIN 13.4 G/DL (11.5-16.0); LYMPHOCYTES # (AUTO) 1.4 X 10^3 (1.0-4.0); LYMPHOCYTES % (AUTO) 22 % (12-44); MEAN CORPUSCULAR HEMOGLOBIN 33 PG (25-34); MEAN CORPUSCULAR HGB CONC 35 G/DL (32-36); MEAN CORPUSCULAR VOLUME 93 FL (80-99); MEAN PLATELET VOLUME 10.1 FL (7.4-10.4); MONOCYTES # (AUTO) 0.6 X 10^3 (0.0-1.0); MONOCYTES % (AUTO) 10 % (0-12); NEUTROPHILS # (AUTO) 4.2 X 10^3 (1.8-7.8); NEUTROPHILS % (AUTO) 66 % (42-75); PLATELET COUNT 134 10^3/uL (130-400); RED CELL DISTRIBUTION WIDTH 13.2 % (10.0-14.5); WHITE BLOOD COUNT 6.3 10^3/uL (4.3-11.0)
[2017-07-08 06:47] LABS: ALANINE AMINOTRANSFERASE 27 U/L (0-55); ALBUMIN 3.4 GM/DL (3.2-4.5); ALKALINE PHOSPHATASE 73 U/L (40-136); BILIRUBIN,TOTAL 0.7 MG/DL (0.1-1.0); BUN/CREATININE RATIO 32; CALCIUM 8.4 MG/DL (8.5-10.1); CARBON DIOXIDE 23 MMOL/L (21-32); CHLORIDE 103 MMOL/L (98-107); CREATININE SERUM 0.74 MG/DL (0.60-1.30); GFR ESTIMATED > 60; POTASSIUM 3.8 MMOL/L (3.6-5.0); SODIUM 137 MMOL/L (135-145); TOTAL PROTEIN 6.2 GM/DL (6.4-8.2)
[2017-07-08 06:55] LABS: GLUCOSE 48 MG/DL (70-105)
[2017-07-08] MEDS ORDERED: INFLUENZA TRIvalent 2017-2018 0.5 ML/45 MCG SYR IM ONE (07:15)
[2017-07-08] MEDS ORDERED: DEXTROSE 50% 50 ML (IMS) SYR ONE (07:17)
[2017-07-08] MEDS ORDERED: DEXTROSE 50% 50 ML (IMS) SYR IV ONE (07:30)
--- NOTE | 2017-07-08 08:01 | Diagnostic Imaging Report ---
PROCEDURE: CT head without contrast. TECHNIQUE: Multiple contiguous axial images were obtained through the brain without the use of intravenous contrast. INDICATION: Multiple falls over the past couple of days. COMPARISON: 01/31/2017 FINDINGS: There are diffuse atrophic changes with prominence of the ventricles and sulci. There are scattered areas of decreased attenuation, nonspecific but likely reflect changes of chronic small vessel ischemic disease. There is otherwise normal chu-white differentiation. No abnormal areas of attenuation to suggest edema from ischemia. There is no midline shift or mass effect. No evidence for acute intracranial hemorrhage or abnormal extra-axial fluid collection. Bony calvarium is intact. Paranasal sinuses are clear. Mastoid air cells also appear clear. IMPRESSION: 1. No CT evidence for acute intracranial abnormality. 2. Age-related atrophic changes with changes of small vessel ischemic disease. A preliminary report was provided by [employer]. Dictated by: Dictated on workstation # [id number]
[2017-07-08 08:58] VITALS: BP 125/72
[2017-07-08] MEDS ORDERED: ACYC800T PO (09:16)
[2017-07-08] MEDS ORDERED: HYDR-3820 PO (09:16)
[2017-07-08] MEDS ORDERED: LEVO125T6 PO (09:16)
[2017-07-08] MEDS ORDERED: OXYB5TAB9 PO (09:16)
[2017-07-08] MEDS ORDERED: ASPI-983 PO (09:16)
[2017-07-08] MEDS ORDERED: LISI10TA2 PO (09:16)
[2017-07-08] MEDS ORDERED: METH2.5T PO (09:16)
[2017-07-08] MEDS ORDERED: GLIM4TAB PO (09:16)
[2017-07-08] MEDS ORDERED: CELE-63 PO (09:16)
[2017-07-08] MEDS ORDERED: PRAM0.5T2 PO ×2 (09:16)
[2017-07-08] MEDS ORDERED: GABA-488 PO (09:16)
[2017-07-08] MEDS ORDERED: FOLI1TAB24 PO (09:16)
[2017-07-08] MEDS ORDERED: DOCU100C37 PO (09:27)
[2017-07-08] MEDS ORDERED: NITR0.4T42 SL (09:50)
--- NOTE | 2017-07-08 10:02 | History & Physical-Hospitalist ---
HPI History of Present Illness: HPI/Chief Complaint Pt is an 87yoCF with a PMH of HTN, NIDDMII, and shingles who presented to the ER after a fall in her home. She was seen in her PCP's office twice this week but yesterday after a fall at home. She had an RX done that showed no fractures. She returned home to and fell again. She was able to crawl over to her phone and call for help. She was found to be hypoglycemic per EMS. She was brought to the ER for evaluation and her blood sugar was normal. CT Head was done and was negative in acute process. She refused another XR of hip/pelvis. She felt too weak to stand and was admitted for obs. This morning she is fixated on making sure she does not get charged for her medicines and really provides no other history than that she was diagnosed with shingles this week. She refused to answer questions about her medical history or surgical history. I did call and discuss case with her PCP who expressed concerns about her ability to care for herself in her home. She has no children but her niece and nephew who live somewhat locally try to help care for her. She has no assigned DPOA and they have advised that she move to [facility] but she has adamantly refused. Source: patient Exam Limitations: clinical condition Date Seen 07/08/17 Time Seen by Provider: 09:30 Attending Physician Deandra Bourne DO PCP Kennedy Monsivais DO Referring Physician Date of Admission Jul 08, 2017 at 00:10 Home Medications & Allergies Home Medications Reviewed patient Home Medication Reconciliation Form Allergies Allergies Coded Allergies No Known Drug Allergies (Verified09/12/08) Past Bzudfql-Olauyg-Ltirxs Hx Patient Social History Employed/Student: retired Alcohol Use: Occasionally Uses Number of Drinks Today: AA Alcohol Beverage of Choice: Beer Recreational Drug Use: No Smoking Status: Unknown if Ever Smoked Type Used: Cigarettes Physical Abuse Screen: No Sexual Abuse: No Recent Foreign Travel: No Contact w/other who traveled: No Recent Hopitalizations: Yes ([facility] IN [place]) Recent Infectious Disease Expo: No Immunizations Up To Date Pediatric: No Date of Pneumonia Vaccine: Feb 12, 2013 Date of Influenza Vaccine: Mar 14, 2013 Seasonal Allergies Seasonal Allergies: No Surgeries Yes (APPY, HYSTERECTOMY HEMORRHOIDECTOMY, ENDOCRINE SURGERY, BACK) Appendectomy, Hysterectomy, Joint Replacement, Orthopedic, Rectal Respiratory Yes Currently Using CPAP: No Cardiovascular Yes Hypertension, Valvular Heart Disease Neurological No Reproductive System Hx Reproductive Disorders: No Sexually Transmitted Disease: No HIV/AIDS: No Female Reproductive Disorders: Denies BELLHOP History: Hysterectomy, Menopausal Genitourinary Bladder Infection Gastrointestinal Yes Hemorrhoids Musculoskeletal Yes (RHEUMATOID AND OSTEOARTHRITIS, RLS) Arthritis, Chronic Back Pain Endocrine History of Endocrine Disorders: Yes Endocrine Disorders: Hypothyroidsim, Diabetes, Non-Insulin dep HEENT Hearing Impairment: Hard of Hearing Cancer No Psychosocial History of Psychiatric Problem: No Integumentary History of Skin or Integumenta: No Blood Transfusions History of Blood Disorders: No Adverse Reaction to a Blood Tr: No Reviewed Nursing Assessment Reviewed/Agree w Nursing PMH: Yes Family Medical History Family Hx: Cancer 19 FATHER (luekemia) G8 SISTER (tumor) Family history: Arthritis G8 BROTHER Family history: Cardiovascular disease 19 MOTHER Family history: Hypertension 19 MOTHER Review of Systems ROS-Unable to Obtain: very limited due to patient's fixation on finances Constitutional: no symptoms reported EENTM: no symptoms reported Respiratory: no symptoms reported, No cough Cardiovascular: no symptoms reported Gastrointestinal: abdominal pain, No nausea, No vomiting Genitourinary: no symptoms reported Musculoskeletal: back pain Skin: rash Psychiatric/Neurological: No Symptoms Reported Physical Exam Physical Exam Vital Signs Vital Sign - Last 12Hours 07/08/17 00:29 O2 Delivery Room Air Capillary Refill : Less Than 3 Seconds General Appearance: No Apparent Distress, WD/WN Respiratory: Lungs Clear, No Accessory Muscle Use, No Respiratory Distress Cardiovascular: Regular Rate, Rhythm, No Murmur Gastrointestinal: Normal Bowel Sounds, Non Tender, Soft Neurologic/Psychiatric: Alert, Other (moves all extremities, oriented to place and person-refuses to answer other questions) Skin: Other (vesicles rash with superimposed apparent burn of left buttock- dermatomal, stops at midline) Results Results/Procedures Lab Laboratory Tests 07/07/17 21:55 07/08/17 06:20 Assessment/Plan Admission Diagnosis Debility Diagnosis/Problems Diagnosis/Problems (1) Generalized weakness Status: Acute Assessment & Plan: Likely multifactorial Has RA, OA, and now shingles with hypoglycemia Will have PT/OT assess her for potential IRU (2) Non-insulin dependent type 2 diabetes mellitus Assessment & Plan: Hypoglycemic this AM Will DC glimepiride Encourage three balanced meals a day Patient refusing to eat more than 1 meal (3) Essential (primary) hypertension Assessment & Plan: Well controlled on no medications currently (4) Shingles outbreak Status: Acute Assessment & Plan: Continue on acyclovir Qualifiers: Qualified Codes: B02.8 - Zoster with other complications (5) Hypothyroidism Status: Chronic Assessment & Plan: TSH WNL- continue home supplement (6) Discharge planning issues Assessment & Plan: Family and PCP in agreement that [facility] would be best place for her at discharge Patient adamantly refusing Will get cognitive evaluation to assure no underlying dementia Social work consulted, appreciate assistance Clinical Quality Measures DVT/VTE Risk/Contraindication: Risk Factor Score Per Nursin RFS Level Per Nursing on Admit: 4+=Very High NERDA ATKINS MD Jul 08, 2017 10:02 am
[2017-07-08] MEDS ORDERED: PATIENT MAY USE OWN MEDS, ALL MC SCH (10:15)
[2017-07-08] MEDS ORDERED: DOCUSATE SODIUM 100 MG (COLACE) CAP PO PRN (10:15)
[2017-07-08] MEDS ORDERED: NITROGLYCERIN 0.4 MG SL TABS BTL 25'S SL PRN (10:15)
[2017-07-08] MEDS: ACYCLOVIR 800MG TABLET PO SCH ×4 (10:22→21:13)
[2017-07-08] MEDS: OXYBUTYNIN (DITROPAN) 5 MG TAB PO SCH ×2 (11:14→21:12)
[2017-07-08] MEDS: lisINopril 10 MG (PRINIVIL) TAB PO SCH (11:15)
[2017-07-08] MEDS: GABAPENTIN 300 MG (NEURONTIN) CAP PO SCH ×2 (11:16→21:13)
[2017-07-08] MEDS: FOLIC ACID 1 MG TAB PO SCH (11:16)
[2017-07-08] MEDS: ASPIRIN E.C. 81 MG (ECOTRIN) TAB PO SCH (11:17)
--- NOTE | 2017-07-08 11:49 | Physical Therapy Progress Note ---
Therapy Progress Note PT attempted to assess patient LOF, however, patient declined stating, "I don't feel like it and I don't want too." PT attempted to educate patient on importance of participating with therapy and told patient's PT would return this afternoon to attempt and patient stated, "It won't do you any good." PT informed Dr. Ortez. 1 visit ref RAVI DÍAZ PT Jul 08, 2017 11:49
[2017-07-08 12:48] VITALS: BP 108/68
[2017-07-08] MEDS ORDERED: LIDOCAINE TOPICAL 4% 50 ML BTL TP ONE (13:30)
[2017-07-08] MEDS: HYDROcodone/APAP 10 MG/325 MG (LORTAB) TAB PO PRN (13:36)
--- NOTE | 2017-07-08 13:51 | Physical Therapy Evaluation ---
PT Evaluation-General Medical Diagnosis Admission Date Jul 08, 2017 at 00:10 Medical Diagnosis: Shingles Onset Date: Jul 08, 2017 Therapy Diagnosis Therapy Diagnosis: debility/weakness Height/Weight Height (Feet): 5 Height (Inches): 4.00 Weight (Pounds): 160 Weight (Ounces): 0.0 Precautions Precautions/Isolations: Contact Isolation, Droplet Isolation Weight Bear Status Right Lower Extremity: Right Weight Bearing/Tolerated Left Lower Extremity: Left Weight Bearing/Tolerated Referral Physician: Pérez Reason for Referral: Evaluation/Treatment Medical History Pertinent Medical History: HTN, Hypothroidism, OA, Rheumatoid Arthritis, Smoking Current History EMS secondary to multiple episodes of decreased Blood sugar resulting in a fall Reviewed History: Yes Social History Home: Single Level Current Living Status: Alone Prior/Core FIM Prior Level of Function Functional [place] Measure 0=Not Assessed/NA 4=Minimal Assistance 1=Total Assistance 5=Supervision or Setup 2=Maximal Assistance 6=Modified [place] 3=Moderate Assistance 7=Complete [place] Bed Mobility: 6 Transfers (B,C,W/C) (FIM): 6 Gait: 2 uses FWW short distances at home PT Evaluation-Current Subjective Patient agrees to PT this p.m. Pain Numeric Pain Scale: 5-Moderate Pain Location: Left Location Body Site: Side Pain Description: Burning Objective Patient Orientation: Normal For Age Problem Solving: Fair Attachments: IV ROM/Strength ROM Lower Extremities bilateral LE WNL Strength Lower Extremities right knee flexion/extension 4/5; hip flexion 3/5; DF/PF 4/5 left knee flexion/extension 4/5; hip flexion 3/5; DF/PF 4/5 Integumentary/Posture Integumentary multiple open wounds from shingles and laying on heating pad and burning skin where shingles are located. Bowel Incontinence: No Bladder Incontinence: No Posture trunk flexed posture Neuromuscular (Tone, Coordination, Reflexes) slightly diminished due to age and inactivity Sensory Vision: Wears Glasses Hearing: Impaired Sensation Right Lower Extremit: Impaired Sensation Left Lower Extremity: Impaired Transfers Functional [place] Measure 0=Not Assessed/NA 4=Minimal Assistance 1=Total Assistance 5=Supervision or Setup 2=Maximal Assistance 6=Modified [place] 3=Moderate Assistance 7=Complete [place] Transfers (B, C, W/C) (FIM): 4 Scootin Rollin Supine to/from Sit: 5 Sit to/from Stand: 4 CGA for safety Gait Mode of Locomotion: Walk Anticipated Mode of Locomotion: Walk Gait (FIM): 1 Distance (FIM): 1=up to 49 ft Distance: 25' Gait Level of Assist: 5 Gait Persons Needed: 1 Gait Assistive Device: FWW Comments/Gait Description trunk flexed posture, leaning on FWW on forearms to ambulate Balance Sitting Static: Normal Sitting Dynamic: Normal Standing Static: Fair Standing Dynamic: Fair Assessment/Needs 87 y.o. female, will benefit from short term skilled PT to address functional strength and mobility to improve current LOF. Patient was having difficulty at home with medications, timing and compliance. Rehab Potential: Guarded Post Rehab Potential-Barriers: age, DM, compliance PT Skilled Nursing Goals Dukey Rider Goals PT Skilled Nursing Goals Time Frame: Jul 14, 2017 Transfers (B,C,W/C) (FIM): 6 Gait (FIM): 2 Gait distance (FIM): 1=308-57 ft Distance: 100' Gait Level of Assist: 5 Gait Assistive Device: FWW Stairs (FIM): 5 # of Steps: 8 Stairs Level Of Assist: 5 PT Plan Problem List Problem List: Activity Tolerance, Safety Treatment/Plan Treatment Plan: Continue Plan of Care Treatment Plan: Bed Mobility, Education, Functional Activity [place], Functional Strength, Gait, Safety, Therapeutic Exercise Treatment Duration: Jul 14, 2017 Frequency: 6 times per week Estimated Hrs Per Day: .25 hour per day Patient and/or Family Agrees t: Yes Safety Risks/Education Patient Education: Gait Training Teaching Recipient: Patient Teaching Methods: Discussion Response to Teaching: Reinforcement Needed Discharge Recommendations Therapy D/C Recommendations: Physical Therapy Home Care, Senior Living Placement , Usp (TCU/NH) Time/GCodes Time In: 1300 Time Out: 1323 Total Billed Treatment Time: 23 Total Billed Treatment 1 visit EVModC 23 min G Codes Necessary: Yes PT/OT Therapy GCodes Therapy Functional Limitation: Physical Therapy Test(s)/Tool used to determine: Level of Assistance Scale Functional Limitation-Current Charge Code: MOBCUR Modifier: CK Functional Limitation-Goal Charge Code: MOBGOAL Modifier: RAVI DESOUZA PT Jul 08, 2017 13:51
--- NOTE | 2017-07-08 15:03 | ST Cognitive Linguistic Eval ---
Speech Evaluation-General Medical Diagnosis Shingles Onset Date: Jul 08, 2017 Therapy Diagnosis Therapy Diagnosis: Moderate Cognitive Impairment Precautions Precautions/Isolations: Contact Isolation, Droplet Isolation Referral Referring Physician: Dr. Belgica Ortez Reason for Referral: Evaluation/Treatment Cognitive Evaluation (Christopher Cognitive Assessment-Version One) Medical History Pertinent Medical History: HTN, Hypothroidism, OA, Rheumatoid Arthritis, Smoking Current History The patient was recently admitted to [facility] with a diagnosis of shingles, as well as, overall debility/weakness. Reviewed History: Yes Social History Current Living Status: Alone Speech PLF-Current Status Prior Level of Function The patient denied prior challenges or difficulty with cognitive function, including memory, problem solving, and ADL sequencing. Subjective The patient was sitting upright in recliner upon entrance. The patient had her dentures in her hand, therefore, the clinician asked if she could aid in placement. The patient stated, "I am going to put them away after you leave." The clinician offered to place them in a container for the patient, who stated, "No, I will do it after this." The patient was hesitant but agreeable to participation in the cognitive evaluation. Language Eval: Auditory Comprehends Simple Yes/No Ques: Functional (Simple.) Indent/Objects Multiple Hernandez: Functional Ident/Pics in Multiple Hernandez: Mild (The patient was able to name one of three black and white line images of animals.) Follows 1-Step Commands: Mild (Frequent repetition of instructions was required. The patient did state, "well, I couldn't hear you.") Language Eval: Verbal Language Completes Spontaneous Greeting: Functional Produces Auto, Serial Info: Functional Imitates Simple Words/Phrases: Mild (The patient was unable to repeat short phrases following clinician production.) Word Finding: Moderate (The patient was able to state five 'f' words (WNL = 11) .) Requests Basic Needs: Mild (The patient stated she wishes to place her dentures away, however, could not state where she wished to place them.) States Basic Personal Info: Functional Language Evaluation: Writing Copies/Traces: Mild Cognitive Patient Orientation The patient was oriented to month, year, place, and city. The patient could not state the day of week or date regardless of the presence of the in-room white board. Objective Cognitive Domain Attention: Mild (The patient was unable to complete serial seven subtraction stating, "I am just too tired after physical therapy. I don't want to try right now.") Memory: Mild (The patient was unable to recall any of five single words following a five minute delay.) Problem Solving: Mild Executive Functions: Moderate (The patient was unable to complete trail-making following maximum clinician cueing or cube copying.) Clock Drawing Severity Rating: Mild (The patient was able to draw the contour and numbers on a clock, however, could not place the hands in the accurate location.) Objective Formal/Standardized Tests Rudolph Cognitive Assessment (MoCA)- Version One Results The patient demonstrated a result of +15/30 on the MoCA- Version One correlating to a moderate cognitive impairment. The patient demonstrated deficits with executive functioning, naming, memory, and attention. Impression The patient displays a moderate cognitive impairment. The patient's largest deficit includes her delayed recall ability (memory), as well as, her overall awareness of her impairments. The patient does become somewhat defensive when increased difficulty is demonstrated throughout the tasks. Speech-Plan Treatment Plan Speech Therapy Treatment Plan: Discontinue ST Evaluation, only. Frequency: 1 time per week Estimated Hrs Per Day: Other Rehab Potential: Guarded Safety Risks/Education Teaching Recipient: Patient Teaching Methods: Discussion Response to Teaching: Reinforcement Needed Education Topics Provided: Results of MoCA Time Speech Therapy Time In: 14:30 Speech Therapy Time Out: 14:50 Total Billed Time: 20 Billed Treatment Time 1, SPSNDCOMP Speech GCodes Complexity Level Test(s)/Tool Used to Determine: Level of Assistance Scale Functional Limitation-Current Current: MEMCUR Modifier: CL Functional Limitation-Goal Goal: MEMGOAL Modifier: CL Functional Limitation-D/C Discharge: MEMDC Modifier: CL FLORYSANTINO ST Jul 08, 2017 15:03
--- NOTE | 2017-07-08 15:28 | Occupational Therapy Eval ---
OT Evaluation-General/PLF Medical Diagnosis Admission Date Jul 08, 2017 at 00:10 Medical Diagnosis: Shingles Onset Date: Jul 07, 2017 Therapy Diagnosis Therapy Diagnosis: decr self care, decr funct mobility, weakness, decr safety awareness Height/Weight Height (Feet): 5 Height (Inches): 4.00 Weight (Pounds): 160 Weight (Ounces): 0.0 Precautions Precautions/Isolations: Contact Isolation, Droplet Isolation Referral Physician: Pérez Referral Reason: Evaluation/Treatment Medical History Pertinent Medical History: Arthritis, COPD, DM, HTN, Hypothroidism, OA, Rheumatoid Arthritis, Smoking Additional Medical History L TKA in 2010, R TKA 2012, valvular heart disease. Bladder infection, hemorrhoids. Chronic back pain (back surgery) Current History Multiple falls over several days, shingles, bilat knee pain, weakness Reviewed History: Yes Social History Home: Single Level Current Living Status: Alone ADL-Prior Level of Function ADL PLOF Comments Pt reported that she has been able to care for herself but has help once a week for cleaning, etc. 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 OT Current Status Subjective Pt seen in room, up in recliner, agreeable to OT. pt rated pain in her back at 6 /10 but did not describe it Appearance Alert, cooperative Mental Status/Objective Patient Orientation: Person, Place, Time, Situation Attachments: Saline Lock Current Glasses/Contacts: Yes Dentures/Partials: Yes Hand Dominance: Right Upper Extremity ROM Grossly WFL bilat. Arthritic changes in hands Upper Extremity Strength Grossly 4/5 bilat hard of hearing ADL-Treatment ADL-Current Pt reported that she has needed a little help opening packages for food. She said that she can get her slipper socks off but not on. She calls for help when she needs to use the BSC. Pt evaluation reported transfers CGA, FWW and she walked 25", FWW with CGA Functional [place] Measure 0=Not Assessed/NA 4=Minimal Assistance 1=Total Assistance 5=Supervision or Setup 2=Maximal Assistance 6=Modified [place] 3=Moderate Assistance 7=Complete IndependenceIRFPAI Quality Coding Scale 6 Independent with activity with or without an assistive device 5 Patient requires set up or clean up by helper. Patient completes activity by themselves 4 Supervision or touching assist (CGA). [place] provide cues , steadying assist 3 The helper provides less than half the effort to complete the activity 2 The helper provides more than half the effort to complete the activity 1 Dependent. The helper does all the effort to complete an activity 7 Patient refused to complete or attempt activity 9 The patient did not perform the activity before the current illness or injury 88 Not attempted due to Medical conditions or safety concerns Education OT Patient Education: Purpose of tx/functional activities, Rehab process Teaching Recipient: Patient Teaching Methods: Discussion Response to Teaching: Verbalize Understanding OT Residential Builder Goals Fci Goals Time Frame: Jul 23, 2017 Eating (FIM): 6 Grooming(FIM): 6 Bathing(FIM): 6 Upper Body Dressing(FIM): 6 Lower Body Dressing(FIM): 6 Toileting(FIM): 6 Toilet/Commode Transfer(FIM): 6 Tub Transfer(FIM): 6 Shower Transfer(FIM): 6 Additional Goals: 1-Demonstrate ADL Tasks, 2-Verbalize Understanding, 3- ImproveStrength/Bonita 1=Demonstrate adherence to instructed precautions during ADL tasks. 2=Patient will verbalize/demonstrate understanding of assistive devices/ modifications for ADL. 3=Patient will improve strength/tolerance for activity to enable patient to perform ADL's. OT Education/Plan Problem List/Assessment Assessment: Decreased Activ Tolerance, Decreased Safety Aware, Decreased UE Strength, Dependent Transfers, Impaired Funct Balance, Impaired Self-Care Skills Pt would benefit from skilled OT to increase her independence in basic self care and to decrease caregiver burden Discharge Recommendations Plan/Recommendations: Continue POC Treatment Plan/Plan of Care Treatment,Training & Education: Yes Patient would benefit from OT for education, treatment and training to promote independence in ADL's, mobility, safety and/or upper extremity function for ADL' s. Plan of Care: ADL Retraining, Functional Mobility, UE Funct Exercise/Act, UE Neuromus Re-Ed/Coord Treatment Duration: Jul 23, 2017 Frequency: 5 times per week Estimated Hrs Per Day: .5 hour per day Agreement: Yes Rehab Potential: Fair Time/GCodes Start Time: 14:50 Stop Time: 15:10 Total Time Billed (hr/min): 20 Billed Treatment Time visit, 20 minutes evaluation moderate intensity PT/OT Therapy GCodes Therapy Functional Limitation: Occupational Therapy Test(s)/Tool used to determine: FIM Functional Limitation-Current Charge Code: SELFCUR Modifier: CK Functional Limitation-Goal Charge Code: SELFGOAL Modifier: GARCIA DELANEY OT Jul 08, 2017 15:28
[2017-07-08 16:00] VITALS: BP 118/69
[2017-07-08] MEDS ORDERED: PRAMIPEXOLE 0.5 MG TAB (MIRAPEX) PO SCH ×2 (16:00→21:00)
--- NOTE | 2017-07-08 18:00 | Diagnostic Imaging Report ---
INDICATION: Bilateral knee pain after fall. COMPARISON: None available. TECHNIQUE: Three views of each knee were obtained. FINDINGS: Bilateral total knee arthroplasties. The left knee arthroplasty has a hinged component. Bilateral patellar resurfacing has also been performed. No acute fracture on either side. No evidence of prosthesis loosening. No substantial joint effusion on either side. IMPRESSION: Bilateral total knee arthroplasties without acute abnormality by radiography. Dictated by: Dictated on workstation # [id number]
[2017-07-08 20:00] VITALS: BP 105/52
[2017-07-09] VITALS: BP 112/51
[2017-07-09] MEDS: NS IV 1000 ML 1,000 ML IV SCH (05:18)
[2017-07-09] MEDS: ACYCLOVIR 800MG TABLET PO SCH ×3 (06:02→12:52)
[2017-07-09 08:00] VITALS: BP 136/68
[2017-07-09] MEDS: FOLIC ACID 1 MG TAB PO SCH (08:40)
[2017-07-09] MEDS: OXYBUTYNIN (DITROPAN) 5 MG TAB PO SCH (08:42)
[2017-07-09] MEDS: ASPIRIN E.C. 81 MG (ECOTRIN) TAB PO SCH (08:43)
[2017-07-09] MEDS: GABAPENTIN 300 MG (NEURONTIN) CAP PO SCH ×2 (08:44→12:48)
[2017-07-09] MEDS: lisINopril 10 MG (PRINIVIL) TAB PO SCH (08:45)
[2017-07-09] MEDS: HYDROcodone/APAP 10 MG/325 MG (LORTAB) TAB PO PRN (08:48)
[2017-07-09] MEDS ORDERED: LEVOTHYROXINE 125 MCG (LEVOTHROID) TABLET PO SCH (09:00)
--- NOTE | 2017-07-09 10:17 | Physical Therapy Daily Note ---
PT Daily Note-Current Subjective Patient declined OOB this a.m. Pain Numeric Pain Scale: 8 Location: Left, Lower Location Body Site: Side Pain Description: Ache, Burning Comment: FLACC Mental Status Patient Orientation: Confused Attachments: IV Transfers Functional [place] Measure 0=Not Assessed/NA 4=Minimal Assistance 1=Total Assistance 5=Supervision or Setup 2=Maximal Assistance 6=Modified [place] 3=Moderate Assistance 7=Complete IndependenceIRFPAI Quality Coding Scale 6 Independent with activity with or without an assistive device 5 Patient requires set up or clean up by helper. Patient completes activity by themselves 4 Supervision or touching assist (CGA). [place] provide cues , steadying assist 3 The helper provides less than half the effort to complete the activity 2 The helper provides more than half the effort to complete the activity 1 Dependent. The helper does all the effort to complete an activity 7 Patient refused to complete or attempt activity 9 The patient did not perform the activity before the current illness or injury 88 Not attempted due to Medical conditions or safety concerns Transfers (B, C, W/C) (FIM): 1 Scootin Patient agrees to repositioning in bed dependent assist x 2 from sidelying right to supine. Weight Bearing Right Lower Extremity: Right Weight Bearing/Tolerated Left Lower Extremity: Left Weight Bearing/Tolerated Assessment Patient ceased treatment after repositioning. PT to dismiss from services on this date. Patient will transfer to [place] for continued care. PT Fci Goals Sand System Operator Goals PT Fci Goals Time Frame: Jul 14, 2017 Transfers (B,C,W/C) (FIM): 6 Gait (FIM): 2 Gait distance (FIM): 8=871-89 ft Distance: 100' Gait Level of Assist: 5 Gait Assistive Device: FWW Stairs (FIM): 5 # of Steps: 8 Stairs Level Of Assist: 5 PT Plan Treatment/Plan Treatment Plan: Discontinue PT Treatment Plan: Bed Mobility, Education, Functional Activity Bonita, Functional Strength, Gait, Safety, Therapeutic Exercise Treatment Duration: Jul 14, 2017 Frequency: 6 times per week Estimated Hrs Per Day: .25 hour per day Patient and/or Family Agrees t: Yes Time/GCodes Time In: 1000 Time Out: 1011 Total Billed Treatment Time: 11 Total Billed Treatment 1 visit FA 11 min G Codes Necessary: Yes PT/OT Therapy GCodes Therapy Functional Limitation: Occupational Therapy Test(s)/Tool used to determine: FIM Functional Limitation-Current Charge Code: SELFCUR Modifier: CK Functional Limitation-Goal Charge Code: SELFGOAL Modifier: CI Functional Limitation-D/C Charge Codes: MOBDC Modifier: CN RAVI DÍAZ PT Jul 09, 2017 10:17
--- NOTE | 2017-07-09 10:20 | Physical Therapy Daily Note ---
PT Daily Note-Current Transfers Functional [place] Measure 0=Not Assessed/NA 4=Minimal Assistance 1=Total Assistance 5=Supervision or Setup 2=Maximal Assistance 6=Modified [place] 3=Moderate Assistance 7=Complete IndependenceIRFPAI Quality Coding Scale 6 Independent with activity with or without an assistive device 5 Patient requires set up or clean up by helper. Patient completes activity by themselves 4 Supervision or touching assist (CGA). [place] provide cues , steadying assist 3 The helper provides less than half the effort to complete the activity 2 The helper provides more than half the effort to complete the activity 1 Dependent. The helper does all the effort to complete an activity 7 Patient refused to complete or attempt activity 9 The patient did not perform the activity before the current illness or injury 88 Not attempted due to Medical conditions or safety concerns Weight Bearing Right Lower Extremity: Right Weight Bearing/Tolerated Left Lower Extremity: Left Weight Bearing/Tolerated PT Single End Sewer Goals Group Home Goals PT Group Home Goals Time Frame: Jul 14, 2017 Transfers (B,C,W/C) (FIM): 6 Gait (FIM): 2 Gait distance (FIM): 0=855-77 ft Distance: 100' Gait Level of Assist: 5 Gait Assistive Device: FWW Stairs (FIM): 5 # of Steps: 8 Stairs Level Of Assist: 5 PT Plan Treatment/Plan Treatment Plan: Continue Plan of Care, Discontinue PT Treatment Plan: Bed Mobility, Education, Functional Activity Bonita, Functional Strength, Gait, Safety, Therapeutic Exercise Treatment Duration: Jul 14, 2017 Frequency: 6 times per week Estimated Hrs Per Day: .25 hour per day Patient and/or Family Agrees t: Yes Time/GCodes Time In: 1000 Time Out: 1011 Total Billed Treatment Time: 11 Total Billed Treatment Error on DC PT will continue until dismissal from hospital. PT/OT Therapy GCodes Therapy Functional Limitation: Physical Therapy Test(s)/Tool used to determine: FIM Functional Limitation-Current Charge Code: MOBCUR Modifier: CK Functional Limitation-Goal Charge Code: MOBGOAL Modifier: RAVI DESOUZA PT Jul 09, 2017 10:20
--- NOTE | 2017-07-09 10:24 | Discharge Summary-Hospitalist ---
Diagnosis/Chief Complaint Date of Admission Jul 08, 2017 at 00:10 Date of Discharge Discharge Date: Jul 09, 2017 Admission Diagnosis Debility Discharge Diagnosis (1) Generalized weakness Status: Acute Assessment & Plan: Improved, ambulated with PT Likely multifactorial Has RA, OA, and now shingles with hypoglycemia PT/OT recommends skilled PT at DC (2) Non-insulin dependent type 2 diabetes mellitus Assessment & Plan: BS improved with DCing glimepiride Encourage three balanced meals a day Patient refusing to eat more than 1 meal (3) Essential (primary) hypertension Assessment & Plan: Well controlled on no medications currently (4) Shingles outbreak Status: Acute Assessment & Plan: Continue on acyclovir (5) Hypothyroidism Status: Chronic Assessment & Plan: TSH WNL- continue home supplement (6) Discharge planning issues Assessment & Plan: Family and PCP in agreement that [facility] be best place for her at discharge After family meeting Adrienne is agreeable to placement for rehab Social work consulted, appreciate assistance Discharge Summary Discharge Physical Examination Allergies: Coded Allergies: No Known Drug Allergies (Verified , 09/12/08) Vitals & I&Os Vital Signs Date Time Temp Pulse Resp B/P (MAP) Pulse Ox O2 Delivery O2 Flow Rate FiO2 07/09/17 09:00 Room Air 07/09/17 08:00 96.5 76 22 136/68 (90) 94 Hospital Course Pt was admitted to the hospital for generalized weakness after two falls in her home. She was unable to walk on arrival to the ER and was admitted for observation. Upon her admission it was identified that she would not be safe to discharge to her own home given her overall debility and confusion regarding her medicines. I discussed this with her PCP Dr. Monsivais, her closest family members, a niece and nephew, and with the patient herself and ultimately she was agreeable to placement at [facility] for rehab. She worked with PT and was able to ambulate with assistance on DC and both she and her family were comfortable with plan to DC. Labs (last 24 hrs) Laboratory Tests 07/08/17 16:13: Glucometer 188H 07/08/17 20:46: Glucometer 122H 07/09/17 05:20: Glucometer 102 07/09/17 11:00: Glucometer 116H Pending Labs Laboratory Tests 07/09/17 05:20: Glucometer 102 07/09/17 11:00: Glucometer 116 Discharge Home Medications: Active Scripts Active Hydrocodon-Acetaminophn 10-325 (Hydrocodone/Acetaminophen) 1 Each Tablet 1 Tab PO Q8H PRN Reported Nitroglycerin 0.4 Mg Tab.subl 0.4 Mg SL UD PRN Docusate Sodium 100 Mg Capsule 100 Mg PO BID PRN Mirapex (Pramipexole Di-HCl) 0.5 Mg Tablet 1 Mg PO HS DATE ON BOTTLE 09-23-15 Gabapentin 300 Mg Capsule 600 Mg PO BID LAST FILL #540 02-05-17 Celecoxib 200 Mg Capsule 200 Mg PO DAILY Levothyroxine Sodium 125 Mcg Tablet 125 Mcg PO DAILY Oxybutynin Chloride 5 Mg Tablet 5 Mg PO BID Folic Acid 1 Mg Tablet 1 Mg PO DAILY Aspirin EC (Aspirin) 81 Mg Tablet.dr 81 Mg PO DAILY Methotrexate (Methotrexate Sodium) 2.5 Mg Tablet 10 Mg PO WEEK TAKES 4 (2.5MG) TABLETS Lisinopril 10 Mg Tablet 10 Mg PO DAILY Acyclovir 800 Mg Tablet 800 Mg PO 5XD #35 TABLETS FILLED 07-05-17 Mirapex (Pramipexole Di-HCl) 0.5 Mg Tablet 0.5 Mg PO 1600 DATE ON BOTTLE 09-23-15 Instructions to patient/family Please see electronic discharge instructions given to patient. Clinical Quality Measures DVT/VTE Risk/Contraindication: Risk Factor Score Per Nursin RFS Level Per Nursing on Admit: 4+=Very High Copy Copies To 1: JUAN C MONSIVAIS DO Problem Qualifiers (1) Shingles outbreak: Herpes zoster complications: with other complications Qualified Codes: B02.8 - Zoster with other complications NEDRA ATKINS MD Jul 09, 2017 10:24 am
--- NOTE | 2017-07-09 10:28 | Discharge Inst-Skilled Nursing ---
Discharge Inst-Skilled NF Consult/Follow Up/Orders Follow Up Appt.: With Dr. Monsivais in 1-2 weeks. Skilled NF Admit to: [facility] Certification (SNF) I certify that SNF services are required to be given on an inpatient basis because of the above named patient's need for half-way care on a continuing basis for the conditions(s) for which he/she was receiving inpatient hospital services prior to his/her transfer to the SNF. Assisted Facility Order: Nursing Services, Corporate Security Manager-Evaluate & Treat, Physical Therapy-Evaluate & Treat Discharge Diet: ADA Diet New & Resume Previous Orders Nedra Ortez Jul 09, 2017 10:27 Pneu Vac Indicated: Yes NEDRA ORTEZ MD Jul 09, 2017 10:28
[2017-07-09] MEDS ORDERED: HYDR-3820 PO (11:57)
--- NOTE | 2017-07-09 12:57 | Physical Therapy Daily Note ---
PT Daily Note-Current Transfers Functional [place] Measure 0=Not Assessed/NA 4=Minimal Assistance 1=Total Assistance 5=Supervision or Setup 2=Maximal Assistance 6=Modified [place] 3=Moderate Assistance 7=Complete IndependenceIRFPAI Quality Coding Scale 6 Independent with activity with or without an assistive device 5 Patient requires set up or clean up by helper. Patient completes activity by themselves 4 Supervision or touching assist (CGA). [place] provide cues , steadying assist 3 The helper provides less than half the effort to complete the activity 2 The helper provides more than half the effort to complete the activity 1 Dependent. The helper does all the effort to complete an activity 7 Patient refused to complete or attempt activity 9 The patient did not perform the activity before the current illness or injury 88 Not attempted due to Medical conditions or safety concerns Weight Bearing Right Lower Extremity: Right Weight Bearing/Tolerated Left Lower Extremity: Left Weight Bearing/Tolerated PT Knot Cutter Goals Care Home Goals PT Care Home Goals Time Frame: Jul 14, 2017 Transfers (B,C,W/C) (FIM): 6 Gait (FIM): 2 Gait distance (FIM): 6=694-30 ft Distance: 100' Gait Level of Assist: 5 Gait Assistive Device: FWW Stairs (FIM): 5 # of Steps: 8 Stairs Level Of Assist: 5 PT Plan Treatment/Plan Treatment Plan: Discontinue PT Treatment Plan: Bed Mobility, Education, Functional Activity [place], Functional Strength, Gait, Safety, Therapeutic Exercise Treatment Duration: Jul 14, 2017 Frequency: 6 times per week Estimated Hrs Per Day: .25 hour per day Patient and/or Family Agrees t: Yes Time/GCodes Time In: 1256 Time Out: 1257 Total Billed Treatment Time: 7 Total Billed Treatment DC to [place] G Codes Necessary: Yes PT/OT Therapy GCodes Therapy Functional Limitation: Physical Therapy Test(s)/Tool used to determine: FIM Functional Limitation-Current Charge Code: MOBCUR Modifier: CK Functional Limitation-Goal Charge Code: MOBGOAL Modifier: CI Functional Limitation-D/C Charge Codes: MOBDC Modifier: RAVI MARISCAL PT Jul 09, 2017 12:57
[2017-07-09 13:10] VITALS: BP 136/68
--- OUTSIDE RECORDS SUMMARY | 2017-07-11 05:22 | XMS REPORT | Continuity of Care Document ---
Author Author [facility] Organization [facility] Address Unknown Phone Unavailable Allergies Active Description Code Type Severity Reaction Onset Reported/Identified Relationship to Patient Clinical Status Yes No Known Drug Allergies [id number] Drug Allergy Unknown N/A 09/12/2008 Medications There is no data. 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 2013 NOAH GARCIA MD E Ot 305.1 TOBACCO USE DISORDER 2013 NOAH GARCIA MD E Ot 333.94 RESTLESS LEGS SYNDROME 2013 NOAH GARCIA MD E Ot 401.9 HYPERTENSION NOS 2013 RADHA HERNANDEZ, NOAH E Ot 496 CHR AIRWAY OBSTRUCT NEC 2013 NOAH GARCIA MD Ot 530.81 ESOPHAGEAL REFLUX 2013 NOAH GARCIA MD Ot 714.0 RHEUMATOID ARTHRITIS 2013 NOAH GARCIA MD E Ot V04.81 ND FOR PROPHYLACTIC VACCIN AND INOCULATI 2013 NOAH GARCIA MD E Ot V43.65 KNEE JOINT REPLACEMENT STATUS 2013 NOAH GACRIA MD E Ot V54.81 AFTERCARE FOLLOWING JOINT REPLACEMENT 2013 NOAH GARCIA MD E Ot V57.89 REHABILITATION PROC NEC 11/29/2013 NOAH GARCIA MD Ot 244.9 HYPOTHYROIDISM NOS 11/29/2013 RADHA HERNANDEZ, NOAH Melchor Ot 250.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, TYPE II OR UNSPEC TY 11/29/2013 NOAH GARCIA MD Ot 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 11/29/2013 NOAH GARCIA MD Ot 305.1 TOBACCO USE DISORDER 11/29/2013 [...] BOCANEGRA DO Ot M51.36 OTHER INTERVERTEBRAL DISC DEGENERATION, 12/21/2016 JUAN C BOCANEGRA DO Ot Z98.1 ARTHRODESIS STATUS 01/31/2017 ELDER PARRY DO Ot E03.9 HYPOTHYROIDISM, UNSPECIFIED 01/31/2017 ELDER PARRY DO Ot E11.9 TYPE 2 DIABETES MELLITUS WITHOUT COMPLIC 01/31/2017 ELDER PARRY DO Ot F17.210 NICOTINE DEPENDENCE, CIGARETTES, UNCOMPL 01/31/2017 ELDER PARRY DO Ot I10 ESSENTIAL (PRIMARY) HYPERTENSION 01/31/2017 ELDER PARRY DO Ot J44.9 CHRONIC OBSTRUCTIVE PULMONARY DISEASE, U 01/31/2017 ELDER PARRY DO Ot M06.9 RHEUMATOID ARTHRITIS, UNSPECIFIED 01/31/2017 ELDER PARRY DO Ot M25.511 PAIN IN RIGHT SHOULDER 01/31/2017 ELDER PARRY DO Ot S00.93XA CONTUSION OF UNSPECIFIED PART OF HEAD, I 01/31/2017 ELDER PARRY DO Ot S16.1XXA STRAIN OF MUSCLE, FASCIA AND TENDON AT N 01/31/2017 ELDER PARRY DO Ot S29.012A STRAIN OF MUSCLE AND TENDON OF BACK WALL 01/31/2017 ELDER PARRY DO Ot W18.30XA FALL ON SAME LEVEL, UNSPECIFIED, INITIAL 01/31/2017 ELDER PARRY DO Ot Z90.710 ACQUIRED ABSENCE OF BOTH CERVIX AND UTER 01/31/2017 ELDER PARRY DO Ot 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 03/13/2017 BRINDA BRANTLEY ELDER Roa Ot E03.9 HYPOTHYROIDISM, UNSPECIFIED 03/13/2017 BRINDA BRANTLEY ELDER Crispin Ot E11.9 TYPE 2 DIABETES MELLITUS WITHOUT COMPLIC 03/13/2017 BRINDA BRANTLEY ELDER Roa Ot F17.210 NICOTINE DEPENDENCE, CIGARETTES, UNCOMPL 03/13/2017 BRINDA BRANTLEY ELDER Crispin Ot I10 ESSENTIAL (PRIMARY) HYPERTENSION 03/13/2017 BRINDA BRANTLEY ELDER Crispin Ot J44.9 CHRONIC OBSTRUCTIVE PULMONARY DISEASE, U 03/13/2017 BRINDA BRANTLEY ELDER Crispin Ot M06.9 RHEUMATOID ARTHRITIS, UNSPECIFIED 03/13/2017 BRINDA BRANTLEY ELDER Crispin Ot M25.511 PAIN IN RIGHT SHOULDER 03/13/2017 BRINDA BRANTLEY ELDER Roa Ot S00.93XA CONTUSION OF UNSPECIFIED PART OF HEAD, I 03/13/2017 BRINDA BRANTLEY ELDER Roa Ot S16.1XXA STRAIN OF MUSCLE, FASCIA AND TENDON AT N 03/13/2017 BRINDA BRANTLEY ELDER Roa Ot S29.012A STRAIN OF MUSCLE AND TENDON OF BACK WALL 03/13/2017 BRINDA BRANTLEY ELDER Roa Ot W18.30XA FALL ON SAME LEVEL, UNSPECIFIED, INITIAL 03/13/2017 BRINDA BRANTLEY ELDER Roa Ot Z90.710 ACQUIRED ABSENCE OF BOTH CERVIX AND UTER 03/13/2017 BRINDA BRANTLEY ELDER Roa Ot 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 07/08/2017 Ot 793.81 MAMMOGRAPHIC MICROCLACIFICATION 07/08/2017 Ot V67.09 SURGERY FOLLOW-UP, OTHER SURGERY 07/08/2017 JUAN C BOCANEGRA DO Ot V67.9 FOLLOW-UP EXAM NOS 07/08/2017 JUAN C BOCANEGRA DO Ot 729.5 PAIN IN LIMB 07/08/2017 JUAN C BOCANEGRA DO Ot 786.50 CHEST PAIN NOS 07/08/2017 JUAN C BOCANEGRA DO Ot K44.9 DIAPHRAGMATIC HERNIA WITHOUT OBSTRUCTION 07/08/2017 JUAN C BOCANEGRA DO Ot R13.10 DYSPHAGIA, UNSPECIFIED 07/08/2017 JUAN C BOCANEGRA DO Ot M51.36 OTHER INTERVERTEBRAL DISC DEGENERATION, 07/08/2017 JUAN C BOCANEGRA DO Albaro Ot Z98.1 ARTHRODESIS STATUS 07/08/2017 JUAN C BOCANEGRA DO Ot S79.911A UNSPECIFIED INJURY OF RIGHT HIP, INITIAL 07/08/2017 JUAN C BOCANEGRA DO [place]baro Ot W19.XXXA UNSPECIFIED FALL, INITIAL ENCOUNTER Procedures There is no data. Results Test Result Range Complete blood count (CBC) with automated white blood cell (WBC) differential - 07/07/17 21:55 Blood leukocytes automated count (number/volume) 6.4 10*3/uL 4.3-11.0 Blood erythrocytes automated count (number/volume) 3.98 10*6/uL 4.35-5.85 Venous blood hemoglobin measurement (mass/volume) 12.7 g/dL 11.5-16.0 Blood hematocrit (volume fraction) 37 % 35-52 Automated erythrocyte mean corpuscular volume 93 [foz_us] 80-99 Automated erythrocyte mean corpuscular hemoglobin (mass per erythrocyte) 32 pg 25-34 Automated erythrocyte mean corpuscular hemoglobin concentration measurement ( mass/volume) 34 g/dL 32-36 Automated erythrocyte distribution width ratio 13.3 % 10.0-14.5 Automated blood platelet count (count/volume) 128 10*3/uL 130-400 Automated blood platelet mean volume measurement 9.9 [foz_us] 7.4-10.4 Automated blood neutrophils/100 leukocytes 75 % 42-75 Automated blood lymphocytes/100 leukocytes 15 % 12-44 Blood monocytes/100 leukocytes 9 % 0-12 Automated blood eosinophils/100 leukocytes 1 % 0-10 Automated blood basophils/100 leukocytes 1 % 0-10 Blood neutrophils automated count (number/volume) 4.8 10*3 1.8-7.8 Blood lymphocytes automated count (number/volume) 1.0 10*3 1.0-4.0 Blood monocytes automated count (number/volume) 0.6 10*3 0.0-1.0 Automated eosinophil count 0.1 10*3/uL 0.0-0.3 Automated blood basophil count (count/volume) 0.0 10*3/uL 0.0-0.1 Comprehensive metabolic panel - 07/07/17 21:55 Serum or plasma sodium measurement (moles/volume) 133 mmol/L 135-145 Serum or plasma potassium measurement (moles/volume) 4.4 mmol/L 3.6-5.0 Serum or plasma chloride measurement (moles/volume) 100 mmol/L 98-107 Carbon dioxide 24 mmol/L 21-32 Serum or plasma anion gap determination (moles/volume) 9 mmol/L 5-14 Serum or plasma urea nitrogen measurement (mass/volume) 27 mg/dL 7-18 Serum or plasma creatinine measurement (mass/volume) 0.78 mg/dL 0.60-1.30 Serum or plasma urea nitrogen/creatinine mass ratio 35 NRG Serum or plasma creatinine measurement with calculation of estimated glomerular filtration rate > NRG Serum or plasma glucose measurement (mass/volume) 171 mg/dL 70-105 Serum or plasma calcium measurement (mass/volume) 8.2 mg/dL 8.5-10.1 Serum or plasma total bilirubin measurement (mass/volume) 0.7 mg/dL 0.1-1.0 Serum or plasma alkaline phosphatase measurement (enzymatic activity/volume) 72 U/L 40-136 Serum or plasma aspartate aminotransferase measurement (enzymatic activity/ volume) 28 U/L 5-34 Serum or plasma alanine aminotransferase measurement (enzymatic activity/volume ) 27 U/L 0-55 Serum or plasma protein measurement (mass/volume) 6.0 g/dL 6.4-8.2 Serum or plasma albumin measurement (mass/volume) 3.3 g/dL 3.2-4.5 Serum or plasma creatine kinase measurement (enzymatic activity/volume) - 07/07 21:55 Serum or plasma creatine kinase measurement (enzymatic activity/volume) 169 U/L 29-168 Serum or plasma C reactive protein measurement (mass/volume) - 07/07/17 21:55 Serum or plasma C reactive protein measurement (mass/volume) 2.34 mg /dL 0.00-0.50 Complete urinalysis with reflex to culture - 07/07/17 23:05 Urine color determination YELLOW NRG Urine clarity determination CLEAR NRG Urine pH measurement by test strip 5 5-9 Specific gravity of urine by test strip 1.020 1.016- 1.022 Urine protein assay by test strip, semi-quantitative 2+ NEGATIVE Urine glucose detection by automated test strip 2+ NEGATIVE Erythrocytes detection in urine sediment by light microscopy NEGATIVE NEGATIVE Urine ketones detection by automated test strip 1+ NEGATIVE Urine nitrite detection by test strip NEGATIVE NEGATIVE Urine total bilirubin detection by test strip NEGATIVE NEGATIVE Urine urobilinogen measurement by automated test strip (mass/volume) NORMAL NORMAL Urine leukocyte esterase detection by dipstick 1+ NEGATIVE Automated urine sediment erythrocyte count by microscopy (number/high power field) NONE NRG Automated urine sediment leukocyte count by microscopy (number/high power field ) [HPF] NRG Bacteria detection in urine sediment by light microscopy NEGATIVE NRG Squamous epithelial cells detection in urine sediment by light microscopy 0-2 NRG Crystals detection in urine sediment by light microscopy PRESENT NRG Casts detection in urine sediment by light microscopy NONE NRG Mucus detection in urine sediment by light microscopy NEGATIVE NRG Complete urinalysis with reflex to culture NO NRG Calcium oxalate crystals detection in urine sediment by light microscopy LARGE NRG Complete blood count (CBC) with automated white blood cell (WBC) differential - 07/08/17 06:20 Blood leukocytes automated count (number/volume) 6.3 10*3/uL 4.3-11.0 Blood erythrocytes automated count (number/volume) 4.10 10*6/uL 4.35-5.85 Venous blood hemoglobin measurement (mass/volume) 13.4 g/dL 11.5-16.0 Blood hematocrit (volume fraction) 38 % 35-52 Automated erythrocyte mean corpuscular volume 93 [foz_us] 80-99 Automated erythrocyte mean corpuscular hemoglobin (mass per erythrocyte) 33 pg 25-34 Automated erythrocyte mean corpuscular hemoglobin concentration measurement ( mass/volume) 35 g/dL 32-36 Automated erythrocyte distribution width ratio 13.2 % 10.0-14.5 Automated blood platelet count (count/volume) 134 10*3/uL 130-400 Automated blood platelet mean volume measurement 10.1 [foz_us] 7.4-10.4 Automated blood neutrophils/100 leukocytes 66 % 42-75 Automated blood lymphocytes/100 leukocytes 22 % 12-44 Blood monocytes/100 leukocytes 10 % 0-12 Automated blood eosinophils/100 leukocytes 2 % 0-10 Automated blood basophils/100 leukocytes 1 % 0-10 Blood neutrophils automated count (number/volume) 4.2 10*3 1.8-7.8 Blood lymphocytes automated count (number/volume) 1.4 10*3 1.0-4.0 Blood monocytes automated count (number/volume) 0.6 10*3 0.0-1.0 Automated eosinophil count 0.1 10*3/uL 0.0-0.3 Automated blood basophil count (count/volume) 0.0 10*3/uL 0.0-0.1 Comprehensive metabolic panel - 07/08/17 06:20 Serum or plasma sodium measurement (moles/volume) 137 mmol/L 135-145 Serum or plasma potassium measurement (moles/volume) 3.8 mmol/L 3.6-5.0 Serum or plasma chloride measurement (moles/volume) 103 mmol/L 98-107 Carbon dioxide 23 mmol/L 21-32 Serum or plasma anion gap determination (moles/volume) 11 mmol/L 5-14 Serum or plasma urea nitrogen measurement (mass/volume) 24 mg/dL 7-18 Serum or plasma creatinine measurement (mass/volume) 0.74 mg/dL 0.60-1.30 Serum or plasma urea nitrogen/creatinine mass ratio 32 NRG Serum or plasma creatinine measurement with calculation of estimated glomerular filtration rate > NRG Serum or plasma glucose measurement (mass/volume) 48 mg/dL 70-105 Serum or plasma calcium measurement (mass/volume) 8.4 mg/dL 8.5-10.1 Serum or plasma total bilirubin measurement (mass/volume) 0.7 mg/dL 0.1-1.0 Serum or plasma alkaline phosphatase measurement (enzymatic activity/volume) 73 U/L 40-136 Serum or plasma aspartate aminotransferase measurement (enzymatic activity/ volume) 30 U/L 5-34 Serum or plasma alanine aminotransferase measurement (enzymatic activity/volume ) 27 U/L 0-55 Serum or plasma protein measurement (mass/volume) 6.2 g/dL 6.4-8.2 Serum or plasma albumin measurement (mass/volume) 3.4 g/dL 3.2-4.5 THYROID STIMULATING HORMONE - 07/08/17 06:20 THYROID STIMULATING HORMONE 1.36 u[iU]/mL 0.35-4.94 Capillary blood glucose measurement by glucometer (mass/volume) - 07/08/17 07: 15 Capillary blood glucose measurement by glucometer (mass/volume) 42 mg/dL 70-110 Capillary blood glucose measurement by glucometer (mass/volume) - 07/08/17 07: 50 Capillary blood glucose measurement by glucometer (mass/volume) 151 mg/dL 70-110 Capillary blood glucose measurement by glucometer (mass/volume) - 07/08/17 11: 07 Capillary blood glucose measurement by glucometer (mass/volume) 144 mg/dL 70-110 Capillary blood glucose measurement by glucometer (mass/volume) - 07/08/17 16: 13 Capillary blood glucose measurement by glucometer (mass/volume) 188 mg/dL 70-110 Capillary blood glucose measurement by glucometer (mass/volume) - 07/08/17 20: 46 Capillary blood glucose measurement by glucometer (mass/volume) 122 mg/dL 70-110 Capillary blood glucose measurement by glucometer (mass/volume) - 07/09/17 05: 20 Capillary blood glucose measurement by glucometer (mass/volume) 102 mg/dL 70-110 Capillary blood glucose measurement by glucometer (mass/volume) - 07/09/17 11: 00 Capillary blood glucose measurement by glucometer (mass/volume) 116 mg/dL 70-110 Encounters ACCT No. Visit Date/Time Discharge Status Pt. Type Provider Facility Loc./Unit Complaint [id number] 07/08/2017 00:10:00 07/09/2017 13:10:00 DIS Inpatient AKILAH GARCIA DO [facility] 4TH LEFT FLANK SHINGLES, GENERALIZED WEAKNESS [id number] 07/07/2017 14:37:00 07/07/2017 23:59:59 CLS Outpatient JUAN C BOCANEGRA DO [facility] RAD S79.911A [id number] 01/31/2017 10:16:00 01/31/2017 12:04:00 DIS Emergency BRINDA ELDER BRANTLEY Crispin [facility] ER FALL/R SHOULDER PAIN [id number] 12/09/2016 12:12:00 12/09/2016 23:59:59 CLS Outpatient JUAN C BOCANEGRA DO [facility] RAD TRAUMA [id number] 07/20/2016 10:30:00 07/20/2016 23:59:59 CLS Outpatient JUAN C BOCANEGRA DO [facility] RAD DYSPHAGIA [id number] 07/25/2014 06:30:00 07/25/2014 23:59:59 CLS Outpatient JUAN C BOCANEGRA DO [facility] CARD CHEST PAIN [id number] 12/07/2013 19:15:00 12/12/2013 13:20:00 DIS Inpatient JUAN C BOCANEGRA DO [facility] SURGICAL POST OP BACK PAIN [id number] 11/24/2013 11:58:00 11/29/2013 12:45:00 DIS Inpatient NOAH GARCIA MD [facility] IRF POST SURGERY [id number] 05/17/2013 14:59:00 05/17/2013 23:59:59 CLS Outpatient JUAN C BOCANEGRA DO [facility] RAD CALF PAIN [id number] 03/13/2013 15:32:00 2013 13:51:00 DIS Inpatient NOAH GARCIA MD [facility] IRF R TOTAL KNEE REPLACMENT THERAPY [id number] 11/21/2012 13:17:00 11/21/2012 23:59:59 CLS Outpatient JUAN C BOCANEGRA DO [facility] RAD SIX MONTH FOLLOW-UP [id number] 07/23/2014 11:14:00 Document Registration [id number] 03/14/2012 12:58:00 Document Registration [id number] 09/09/2011 12:15:00 Document Registration [id number] 07/29/2011 10:13:00 Document Registration [id number] 02/10/2011 14:01:00 Document Registration [id number] 01/22/2011 13:07:00 Document Registration [id number] 10/02/2010 14:30:00 Document Registration [id number] 09/29/2010 10:55:00 Document Registration [id number] 09/25/2010 12:30:00 Document Registration [id number] 09/22/2010 10:00:00 Document Registration [id number] 09/14/2010 13:45:00 Document Registration [id number] 09/04/2009 14:54:00 Document Registration [id number] 07/22/2009 11:46:00 Document Registration [id number] 05/03/2009 14:09:00 Document Registration [id number] 04/26/2009 14:30:00 Document Registration
--- OUTSIDE RECORDS SUMMARY | 2017-07-12 10:59 | XMS REPORT | Continuity of Care Document ---
Author Author [facility] Organization [facility] Address Unknown Phone Unavailable Allergies Active Description Code Type Severity Reaction Onset Reported/Identified Relationship to Patient Clinical Status Yes No Known Drug Allergies [id number] Drug Allergy Unknown N/A 09/12/2008 Medications There [...] JOINT REPLACEMENT STATUS 2013 NOAH GARCIA MD E Ot V54.81 AFTERCARE FOLLOWING JOINT [...] GARCIA MD Ot 530.81 ESOPHAGEAL REFLUX 11/29/2013 ONAH GARCIA MD Ot 564.00 UNSPEC CONSTIPATION 11/29/2013 [...] Status Pt. Type Provider Facility Loc./Unit Complaint [id number] 07/08/2017 00:10:00 07/09/2017 13:10:00 DIS Inpatient AKILAH GARCIA DO [facility] 4TH LEFT FLANK SHINGLES, GENERALIZED WEAKNESS [id number] 07/07/2017 14:37:00 07/07/2017 23:59:59 CLS Outpatient JUNA C BOCANEGRA DO [facility] RAD [id number] [id number] 01/31/2017 10:16:00 01/31/2017 12:04:00 DIS Emergency BRINDA ELDER BRANTLEY Crispin [facility] ER FALL/R SHOULDER PAIN [id number] 12/09/2016 12:12:00 12/09/2016 23:59:59 CLS Outpatient JUAN C BOCANEGRA DO [facility] RAD TRAUMA [id number] 07/20/2016 10:30:00 07/20/2016 23:59:59 CLS Outpatient JUAN C BOCANEGRA DO [facility] RAD DYSPHAGIA [id number] 07/25/2014 06:30:00 07/25/2014 23:59:59 CLS Outpatient JUAN C BOCANEGRA DO [facility] CARD CHEST PAIN [id number] 12/07/2013 19:15:00 12/12/2013 13:20:00 DIS Inpatient JUAN C BOCANEGRA DO [facility] SURGICAL POST OP BACK PAIN [id number] 11/24/2013 11:58:00 11/29/2013 12:45:00 DIS Inpatient NOAH GARCIA MD [facility] IRF POST SURGERY [id number] 05/17/2013 14:59:00 05/17/2013 23:59:59 CLS Outpatient JUAN C BOCANEGRA DO [facility] RAD CALF PAIN [id number] 03/13/2013 15:32:00 2013 13:51:00 DIS Inpatient NOAH GARCIA MD [facility] IRF R TOTAL KNEE REPLACMENT THERAPY [id number] 11/21/2012 13:17:00 11/21/2012 23:59:59 CLS Outpatient JUAN C BOCANEGRA DO [facility] RAD SIX MONTH FOLLOW-UP [id number] 07/23/2014 11:14:00 Document Registration [id number] 03/14/2012 12:58:00 Document Registration [id number] 09/09/2011 12:15:00 Document Registration [id number] 07/29/2011 10:13:00 Document Registration [id number] 02/10/2011 14:01:00 Document Registration [id number] 01/22/2011 13:07:00 Document Registration [id number] 10/02/2010 14:30:00 Document Registration [id number] 09/29/2010 10:55:00 Document Registration [id number] 09/25/2010 12:30:00 Document Registration [id number] 09/22/2010 10:00:00 Document Registration [id number] 09/14/2010 13:45:00 Document Registration [id number] 09/04/2009 14:54:00 Document Registration [id number] 07/22/2009 11:46:00 Document Registration [id number] 05/03/2009 14:09:00 Document Registration [id number] 04/26/2009 14:30:00 Document Registration
== END 2017-07-09 10:26 ==
LOC: EDUNIT# 21:48 → ER 21:49 → 4TH 21:50 → UNDOADMOB 07-08 00:10 → UNDODISOB 07-09 13:10
PROVIDERS: ADMIT Internal Medicine; ATTEND Internal Medicine
DX: R53.1 Weakness (principal); B02.8 Zoster with other complications; E11.649 Type 2 diabetes mellitus with hypoglycemia without coma; I10 Essential (primary) hypertension; J44.9 Chronic obstructive pulmonary disease, unspecified; F17.210 Nicotine dependence, cigarettes, uncomplicated; E03.9 Hypothyroidism, unspecified; M06.9 Rheumatoid arthritis, unspecified; M19.91 Primary osteoarthritis, unspecified site; G25.81 Restless legs syndrome; M79.604 Pain in right leg; M79.605 Pain in left leg; Z96.651 Presence of right artificial knee joint; W19.XXXA Unspecified fall, initial encounter; Y92.013 Bedroom of single-family (private) house as the place of occurrence of the external cause; Z79.899 Other long term (current) drug therapy
CPT/HCPCS: 36415; 70450; 80053; 81000; 82550; 82962; 84443; 85025; 86141; 93005; G0378

== ENCOUNTER → 2017-07-07 | Outpatient (CLI) | payer MEDICARE ==
[~2017-07-07] MED LIST changes: +ACYC800T PO; +ASPI-983 PO; +CELE-63 PO; +DOCU100C37 PO; +FOLI1TAB24 PO; +GABA-488 PO; +HYDR-3820 PO; +LISI10TA2 PO; +METH2.5T PO; +NITR0.4T42 SL; +OXYB5TAB9 PO; +PRAM0.5T2 PO
--- NOTE | 2017-07-07 16:35 | Diagnostic Imaging Report ---
INDICATION: Fall with right hip pain. TIME OF EXAM: 3:11 PM FINDINGS: Two views of the right hip demonstrate normal femoral acetabular alignment. The joint space is well-maintained. The femoral head and neck appear intact. No fractures are seen. Right-sided rami are intact. IMPRESSION: No acute bony abnormality is detected. Dictated by: Dictated on workstation # [id number]
== END ==
LOC: RAD 14:37
PROVIDERS: ATTEND Internal Medicine
DX: S79.911A Unspecified injury of right hip, initial encounter (principal); W19.XXXA Unspecified fall, initial encounter
CPT/HCPCS: 73502

== ENCOUNTER 2018-05-19 13:47 | Emergency (ER) | payer MEDICARE ==
[~2018-05-19] VITALS: Ht 162.6 cm; Wt 59.0 kg
[~2018-05-19 13:47] MED LIST changes: +ACYC800T PO; +ASPI-983 PO; +CELE-63 PO; +DOCU100C37 PO; +FOLI1TAB24 PO; +GABA-488 PO; +HYDR-3820 PO; +LISI10TA2 PO; +NITR0.4T42 SL; +OXYB5TAB9 PO; +PRAM0.5T2 PO
--- NOTE | 2018-05-19 14:13 | ED Fall/Injury ---
General Stated Complaint: FALL Source: patient, EMS Exam Limitations: no limitations (CAL BARTLETT) History of Present Illness Date Seen by Provider: May 19, 2018 Time Seen by Provider: 13:51 Initial Comments Patient presents to ER by EMS with chief complaint she had a fall and laid on the ground for an uncertain amount of time before somebody drove by and helped her get up and summons an ambulance. She had drove out to her mailbox with her car because of her back pain walking out was rather difficult. The wind knocked the door back against her throwing her to the ground where she laid for at least 10-20 minutes. Patient said it knocked the wind out of her for a long time for should catch her breath again. She's having some pain on the base of her sternum as well as bilateral lower ribs. That pain has gotten better however. She's not had anything for the pain nor does she want anything. She's having no nausea vomiting dysuria or constipation or diarrhea. No fevers chills or cough. She has a little pain on the abrasion above her left eyebrow but no pain in her neck of the rest of her head. (CAL BARTLETT) Allergies and Home Medications Allergies Coded Allergies: No Known Drug Allergies (Verified , 09/12/08) Home Medications Acyclovir 800 Mg Tablet, 800 MG PO 5XD, (Reported) #35 TABLETS FILLED 07-05-17 Aspirin 81 Mg Tablet.dr, 81 MG PO DAILY, (Reported) Celecoxib 200 Mg Capsule, 200 MG PO DAILY, (Reported) Docusate Sodium 100 Mg Capsule, 100 MG PO BID PRN for CONSTIPATION-1ST LINE, ( Reported) Folic Acid 1 Mg Tablet, 1 MG PO DAILY, (Reported) Gabapentin 300 Mg Capsule, 600 MG PO BID, (Reported) LAST FILL #540 02-05-17 Hydrocodone/Acetaminophen 1 Each Tablet, 1 TAB PO Q8H PRN for PAIN-MODERATE Prescribed by: NEDRA ATKINS on 07/09/17 1157 Levothyroxine Sodium 125 Mcg Tablet, 125 MCG PO DAILY, (Reported) Lisinopril 10 Mg Tablet, 10 MG PO DAILY, (Reported) Methotrexate Tablet 2.5 Mg Tablet, 10 MG PO WEEK, (Reported) TAKES 4 (2.5MG) TABLETS Nitroglycerin 0.4 Mg Tab.subl, 0.4 MG SL UD PRN for CHEST PAIN, (Reported) Oxybutynin Chloride 5 Mg Tablet, 5 MG PO BID, (Reported) Pramipexole Di-HCl 0.5 Mg Tablet, 0.5 MG PO 1600, (Reported) DATE ON BOTTLE 09-23-15 Pramipexole Di-HCl 0.5 Mg Tablet, 1 MG PO HS, (Reported) DATE ON BOTTLE 09-23-15 Patient Home Medication List Home Medication List Reviewed: Yes (CAL BARTLETT) Review of Systems Review of Systems Constitutional: No chills, No diaphoresis, No fever Eyes: Denies Blindness, Denies Blurred Vision, Denies Foreign Body Sensation Ears, Nose, Mouth, Throat: denies ear pain, denies ear discharge Respiratory: No cough; short of breath (initially) Cardiovascular: see HPI, chest pain; No palpitations, No vascular heart diseas Gastrointestinal: abdominal pain (chronic left lower quadrant abdominal pain secondary to post herpetic neuralgia); No constipation, No diarrhea Genitourinary: No discharge, No dysuria Musculoskeletal: back pain (chronic not acute); No joint pain (CAL BARTLETT) Past Tghercp-Qccvxu-Inqnjy Hx Patient Social History Alcohol Beverage of Choice: Beer Type Used: Cigarettes Recent Hopitalizations: Yes (L TKR IN [place]) (CAL BARTLETT) Immunizations Up To Date PED Vaccines UTD: No Date of Pneumonia Vaccine: Feb 12, 2013 Date of Influenza Vaccine: Mar 14, 2013 (CAL BARTLETT) Seasonal Allergies Seasonal Allergies: No (CAL BARTLETT) Past Medical History Surgeries: Yes (APPY, HYSTERECTOMY HEMORRHOIDECTOMY, ENDOCRINE SURGERY, BACK) Appendectomy, Hysterectomy, Joint Replacement, Orthopedic, Rectal Respiratory: Yes COPD Currently Using CPAP: No Cardiac: Yes Hypertension, Valvular Heart Disease Neurological: No Reproductive Disorders: No Female Reproductive Disorders: Denies 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, Menopausal Sexually Transmitted Disease: No HIV/AIDS: No Bladder Infection Gastrointestinal: Yes Hemorrhoids Musculoskeletal: Yes (RHEUMATOID AND OSTEOARTHRITIS, RLS) Arthritis, Chronic Back Pain Endocrine: Yes Hypothyroidsim, Diabetes, Non-Insulin dep Hearing Impairment: Hard of Hearing Cancer: No Psychosocial: No Integumentary: No Blood Disorders: No Adverse Reaction/Blood Tranf: No (CAL BARTLETT) Family Medical History Cancer 19 FATHER (luekemia) G8 SISTER (tumor) Family history: Arthritis G8 BROTHER Family history: Cardiovascular disease 19 MOTHER Family history: Hypertension 19 MOTHER Physical Exam Vital Signs Vital Signs - First Documented 05/19/18 14:24 Temp 96.3 Pulse 66 Resp 18 B/P (MAP) 166/99 (121) Pulse Ox 97 (KIARA ELLISON MD) Vital Signs Capillary Refill : (CAL BARTLETT) Height, Weight, BMI Height: 5'4.00" Weight: 160lbs. 0.0oz. 72.993339gw; 27.5 BMI Method:Estimated General Appearance: WD/WN, mild distress HEENT: PERRL/EOMI, normal ENT inspection, TMs normal, pharynx normal, other ( negative for Genao sign, hemotympanum or raccoon eyes. 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, no motor/sensory deficits, alert, normal mood/affect, oriented x 3 Skin: normal color, warm/dry (CAL BARTLETT) [place] Coma Score Best Eye Response: (4) Open Spontaneously Best Verbal Response: (5) Oriented Best Motor Response: (6) Obeys Commands Tenisha Total: 15 (CAL BARTLETT) Progress/Results/Core Measures Results/Orders Lab Results Laboratory Tests Test 05/19/18 14:08 Range/Units White Blood Count 7.2 4.3-11.0 10^3/uL Red Blood Count 3.97 L 4.35-5.85 10^6/uL Hemoglobin 12.9 11.5-16.0 G/DL Hematocrit 39 35-52 % Mean Corpuscular Volume 99 80-99 FL Mean Corpuscular Hemoglobin 32 25-34 PG Mean Corpuscular Hemoglobin Concent 33 32-36 G/DL Red Cell Distribution Width 15.2 H 10.0-14.5 % Platelet Count 195 130-400 10^3/uL Mean Platelet Volume 9.5 7.4-10.4 FL Neutrophils (%) (Auto) 71 42-75 % Lymphocytes (%) (Auto) 19 12-44 % Monocytes (%) (Auto) 8 0-12 % Eosinophils (%) (Auto) 1 0-10 % Basophils (%) (Auto) 0 0-10 % Neutrophils # (Auto) 5.1 1.8-7.8 X 10^3 Lymphocytes # (Auto) 1.4 1.0-4.0 X 10^3 Monocytes # (Auto) 0.5 0.0-1.0 X 10^3 Eosinophils # (Auto) 0.1 0.0-0.3 10^3/uL Basophils # (Auto) 0.0 0.0-0.1 10^3/uL Sodium Level 140 135-145 MMOL/L Potassium Level 4.5 3.6-5.0 MMOL/L Chloride Level 105 98-107 MMOL/L Carbon Dioxide Level 23 21-32 MMOL/L Anion Gap 12 5-14 MMOL/L Blood Urea Nitrogen 18 7-18 MG/DL Creatinine 0.72 0.60-1.30 MG/DL Estimat Glomerular Filtration Rate > 60 BUN/Creatinine Ratio 25 Glucose Level 119 H 70-105 MG/DL Calcium Level 9.4 8.5-10.1 MG/DL Corrected Calcium 9.4 8.5-10.1 MG/DL Total Bilirubin 1.0 0.1-1.0 MG/DL Aspartate Amino Transf (AST/SGOT) 31 5-34 U/L Alanine Aminotransferase (ALT/SGPT) 20 0-55 U/L Alkaline Phosphatase 74 40-136 U/L Total Creatine Kinase 110 29-168 U/L Total Protein 6.7 6.4-8.2 GM/DL Albumin 4.0 3.2-4.5 GM/DL (KIARA ELLISON MD) Medications Given in ED (KIARA ELLISON MD) Vital Signs/I&O 05/19/18 05/19/18 14:24 19:10 Temp 96.3 Pulse 66 87 Resp 18 20 B/P (MAP) 166/99 (121) 154/92 (112) Pulse Ox 97 98 (KIARA ELLISON MD) Progress Progress Note #1: Time: 14:12 Progress Note Plan is to get a noncontrast CT of the head and neck. We'll observe her blood pressure which is initially quite high probably secondary to the anus and anxiety. It is already starting to come down as we wait. She's declining anything for pain right now. We'll clean up the abrasion over her left eye and put glue across to it. Establish an IV site get a CPK, basic set of labs. Bilateral rib x-rays. She has good breath sounds on both sides so of pneumothorax is less likely. For her faint wheezing we've offered her a breathing treatment she's declined at this time. She's not having any subjective evidence of dyspnea right now. She is a smoker. Progress Note #2: Time: 16:14 Progress Note Staff tried to get a CT of her head and neck but the patient was unable to complete this because she's having some pain making it difficult to lay flat. She's not having as bad as shortness of breath now and her vital signs are improved. Her blood pressure has come down to 154 systolic over 83 range. Again we have offered her pain medicine to help her do the CT scan as an observation period would be advisable since she lives a home alone. She has accepted some fentanyl so we will get this done IV and then send her back to try a CT scan of the head and neck. She still has quite a bit of tenderness in her ribs despite no overt or displaced fractures. Progress Note #3: Time: 17:33 Progress Note Upon reexamination the patient states that she thinks the second round of medications Toradol and fentanyl have started to kick in and she is able to lay flat now. We did lay her flat in the bed a couple times and she was able to tolerate this for a minute or so so were going to attempt a third time to get a CT of her back. Since she's having some pain in her back hurting and go ahead and extend the CT from her C-spine down the thoracic and lumbar spine as well. She does have a life alert button she can wear at home and her niece said she would take her home and help her get settled and for the night and check on her again early in the morning if everything else was okay. (CAL BARTLETT) Progress Note : Progress Note 1855: No acute findings and CT. Degeneration overall. Patient okay when lying down. Family member here. Discharge home with return precautions. Patient verbalize understanding instructions and agreement with plan. (KIARA ELLISON MD) Diagnostic Imaging Diagonstic Imaging: Xray Plain Films/CT/US/NM/MRI: chest (bilateral ribs) Comments NAME: RYAN HODGE MED REC#: [id number] PHYSICIAN: CAL BARTLETT MD CC: ALPHONSE ARCINIEGA MD; CAL BARTLETT Page 1 of 1 RADIOLOGY REPORT [facility] [place] CC: ALPHONSE ARCINIEGA MD; CAL BARTLETT Page 1 of 1 RADIOLOGY REPORT NAME: RYAN HODGE MED REC#: [id number] PT STATUS: REG ER : 1930 PHYSICIAN: CAL BARTLETT MD ADMIT DATE: 05/19/18/ER Signed Date of Exam: 05/19/18 RIBS/BILAT WITH CHEST INDICATION: Fall with lower rib pain. TIME OF EXAM: 03:20 p.m. Multiple views of the chest and bilateral ribs were obtained. No pneumothorax or parenchymal contusion is seen. There is minimal scarring or atelectasis right perihilar region. No definite displaced rib fracture is seen. IMPRESSION: No definite displaced rib fractures detected. Dictated by: Dictated on workstation # [id number] Dict: 05/19/18 1533 Trans: 05/19/18 1601 Interpreted by: ALPHONSE ARCINIEGA MD Electronically signed by: ALPHONSE ARCINIEGA MD 05/19/18 1601 Reviewed: Reviewed by Me Diagonstic Imaging: CT (noncontrast) Plain Films/CT/US/NM/MRI: c-spine, head Comments CT brain: No hemorrhage, tumor, mass effect, midline shift or fractures. CT cervical spine: Multilevel degenerative changes of the cervical spine without evidence of acute fracture or subluxation. Unchanged appearance of the C5-C6 vertebral bodies which dentistry fusion and central area of lucency. Reviewed: Reviewed by Me Diagonstic Imaging: CT (noncontrast) Plain Films/CT/US/NM/MRI: other (thoracic and lumbar spine) Comments Extensive diffuse degenerative changes throughout the thoracic and lumbar spine. There is no overt acute compression deformity or acute fracture. There are post surgical changes with fusion of L5-S1. Reviewed: Reviewed by Me (CAL BARTLETT) Transfer of Care Time: 18:10 Care transferred to: Dr. Ellison (CAL BARTLETT) Departure Impression Primary Impression: Fall from standing Qualified Codes: W19.XXXA - Unspecified fall, initial encounter Additional Impressions: Multiple abrasions Rib pain Disposition: HOME, SELF-CARE Condition: Improved Departure-Patient Inst. Decision time for Depature: 18:55 (KIARA ELLISON MD) Referrals: JUAN C BOCANEGRA DO (PCP/Family) Primary Care Physician Patient Instructions: Cervical Muscle Strain (DC), Contusion (DC), Minor Head Injury (DC), Muscle Strain (DC) Add. Discharge Instructions: Continue home medications as directed. Follow-up with your DrDale in a few days for recheck. You may use ice packs or heat to the areas of concern as needed to decrease pain. You may use antibiotic ointment and a Band-Aid over the wound on your head once or twice daily for the next several days and then as needed. Return for worsening, fever, vomiting, weakness, breathing problems or other concerns as needed. CAL BARTLETT May 19, 2018 14:13 KIARA ELLISON MD May 19, 2018 19:01
[2018-05-19 14:16] LABS: BASOPHILS % (AUTO) 0 % (0-10); EOSINOPHILS # (AUTO) 0.1 10^3/uL (0.0-0.3); EOSINOPHILS % (AUTO) 1 % (0-10); HEMATOCRIT 39 % (35-52); HEMOGLOBIN 12.9 G/DL (11.5-16.0); LYMPHOCYTES # (AUTO) 1.4 X 10^3 (1.0-4.0); LYMPHOCYTES % (AUTO) 19 % (12-44); MEAN CORPUSCULAR HEMOGLOBIN 32 PG (25-34); MEAN CORPUSCULAR HGB CONC 33 G/DL (32-36); MEAN CORPUSCULAR VOLUME 99 FL (80-99); MEAN PLATELET VOLUME 9.5 FL (7.4-10.4); MONOCYTES # (AUTO) 0.5 X 10^3 (0.0-1.0); MONOCYTES % (AUTO) 8 % (0-12); NEUTROPHILS # (AUTO) 5.1 X 10^3 (1.8-7.8); NEUTROPHILS % (AUTO) 71 % (42-75); PLATELET COUNT 195 10^3/uL (130-400); RED BLOOD COUNT 3.97 10^6/uL (4.35-5.85); RED CELL DISTRIBUTION WIDTH 15.2 % (10.0-14.5); WHITE BLOOD COUNT 7.2 10^3/uL (4.3-11.0)
[2018-05-19 14:39] LABS: ALANINE AMINOTRANSFERASE 20 U/L (0-55); ALKALINE PHOSPHATASE 74 U/L (40-136); BUN/CREATININE RATIO 25; CALCIUM 9.4 MG/DL (8.5-10.1); CARBON DIOXIDE 23 MMOL/L (21-32); CHLORIDE 105 MMOL/L (98-107); CREATINE KINASE 110 U/L (29-168); CREATININE SERUM 0.72 MG/DL (0.60-1.30); GFR ESTIMATED > 60; GLUCOSE 119 MG/DL (70-105); POTASSIUM 4.5 MMOL/L (3.6-5.0); SODIUM 140 MMOL/L (135-145); TOTAL PROTEIN 6.7 GM/DL (6.4-8.2)
--- NOTE | 2018-05-19 15:39 | Diagnostic Imaging Report ---
INDICATION: Fall with lower rib pain. TIME OF EXAM: 03:20 p.m. Multiple views of the chest and bilateral ribs were obtained. No pneumothorax or parenchymal contusion is seen. There is minimal scarring or atelectasis right perihilar region. No definite displaced rib fracture is seen. IMPRESSION: No definite displaced rib fractures detected. Dictated by: Dictated on workstation # [id number]
[2018-05-19] MEDS ORDERED: fentaNYL INJECTION 100 MCG/2 ML AMP IVP ONE ×2 (16:00→16:45)
--- OUTSIDE RECORDS SUMMARY | 2018-05-19 16:20 | XMS REPORT | Continuity of Care Document ---
Author Author [facility] Organization [facility] Address Unknown Phone Unavailable Allergies Active Description Code Type Severity Reaction Onset Reported/Identified Relationship to Patient Clinical Status Yes No Known Drug Allergies [id number] Drug Allergy Unknown N/A 09/12/2008 Medications There [...] BOCANEGRA DO Ot 530.81 ESOPHAGEAL REFLUX 12/12/2013 JAUN C BOCANEGRA DO Ot 564.00 UNSPEC CONSTIPATION [...] 793.81 07/23/2014 Ot V67.09 07/23/2014 JUAN C BOACNEGRA DO Ot V67.9 07/23/2014 JUAN C BOCANEGRA [...] DEPENDENCE, CIGARETTES, UNCOMPL 03/13/2017 BRINDA BRANTLEY ELDER Crisipn Ot I10 ESSENTIAL (PRIMARY) HYPERTENSION 03/13/2017 BRINDA BRANTLEY ELEDR Crispin Ot J44.9 CHRONIC OBSTRUCTIVE PULMONARY DISEASE, [...] R13.10 DYSPHAGIA, UNSPECIFIED 07/08/2017 JUAN C BOCANEGRA DO, Ot M51.36 OTHER INTERVERTEBRAL DISC DEGENERATION, 07/08/2017 JUAN C BOCANEGRA DO, Ot Z98.1 ARTHRODESIS STATUS 07/08/2017 JUAN C BOCANEGRA DO, Ot S79.911A UNSPECIFIED INJURY OF RIGHT HIP, INITIAL 07/08/2017 JUAN C BOCANEGRA DO, Ot W19.XXXA UNSPECIFIED FALL, INITIAL ENCOUNTER 07/09/2017 AKILAH GARCIA DO Ot B02.8 ZOSTER WITH OTHER COMPLICATIONS 07/09/2017 AKILAH GARCIA DO Ot E03.9 HYPOTHYROIDISM, UNSPECIFIED 07/09/2017 AKILAH GARCIA DO Ot E11.649 TYPE 2 DIABETES MELLITUS WITH HYPOGLYCEM 07/09/2017 AKILAH GARCIA DO Ot F17.210 NICOTINE DEPENDENCE, CIGARETTES, UNCOMPL 07/09/2017 AKILAH GARCIA DO Ot G25.81 RESTLESS LEGS SYNDROME 07/09/2017 AKILAH GARCIA DO Ot I10 ESSENTIAL (PRIMARY) HYPERTENSION 07/09/2017 AKILAH GARCIA DO Ot J44.9 CHRONIC OBSTRUCTIVE PULMONARY DISEASE, U 07/09/2017 AKILAH GARCIA DO Ot M06.9 RHEUMATOID ARTHRITIS, UNSPECIFIED 07/09/2017 AKILAH GARCIA DO Ot M19.91 PRIMARY OSTEOARTHRITIS, UNSPECIFIED SITE 07/09/2017 AKILAH GARCIA DO Ot M79.604 PAIN IN RIGHT LEG 07/09/2017 AKILAH GARCIA DO Ot M79.605 PAIN IN LEFT LEG 07/09/2017 AKILAH GRACIA DO Ot R53.1 WEAKNESS 07/09/2017 AKILAH GARCIA DO Ot W19.XXXA UNSPECIFIED FALL, INITIAL ENCOUNTER 07/09/2017 AKILAH GARCIA DO Ot Y92.013 BEDROOM OF SINGLE-FAMILY (PRIVATE) HOUSE 07/09/2017 AKILAH GARCIA DO Ot Z79.899 OTHER [facility] (CURRENT) DRUG THERAPY 07/09/2017 AKILAH GARCIA DO Ot Z96.651 PRESENCE OF RIGHT ARTIFICIAL KNEE JOINT 07/16/2017 JUAN C BOCANEGRA DO, Ot S79.911A UNSPECIFIED INJURY OF RIGHT HIP, INITIAL 07/16/2017 JUAN C BOCANEGRA DO, Ot W19.XXXA UNSPECIFIED FALL, INITIAL ENCOUNTER 10/04/2017 JUAN C BOCANEGRA DO, Ot V67.9 FOLLOW-UP EXAM NOS 10/04/2017 BOCANEGRA DO, JUAN C Irvin Ot 729.5 PAIN IN LIMB 10/04/2017 BOCANEGRA DO, JUAN C Irvin Ot 786.50 CHEST PAIN NOS 10/04/2017 BOCANEGRA DO, JUAN C Irvin Ot K44.9 DIAPHRAGMATIC HERNIA WITHOUT OBSTRUCTION 10/04/2017 BOCANEGRA DOJUAN C Ot R13.10 DYSPHAGIA, UNSPECIFIED 10/04/2017 BOCANEGRA DOJUAN C Ot M51.36 OTHER INTERVERTEBRAL DISC DEGENERATION, 10/04/2017 BOCANEGRA DO, JUAN C Irvin Ot Z98.1 ARTHRODESIS STATUS 10/04/2017 BOCANEGRA DO, JUAN C Irvin Ot S79.911A UNSPECIFIED INJURY OF RIGHT HIP, INITIAL 10/04/2017 JUAN C BOCANEGRA DO Ot W19.XXXA UNSPECIFIED FALL, INITIAL ENCOUNTER 10/05/2017 BOCANEGRA JUAN C BRANTLEY Ot V67.9 FOLLOW-UP EXAM NOS 10/05/2017 BOCANEGRA DOJUAN C Ot 729.5 PAIN IN LIMB 10/05/2017 BOCANEGRA DO, JUAN C Irvin Ot 786.50 CHEST PAIN NOS 10/05/2017 BOCANEGRA DO, JUAN C Irvin Ot K44.9 DIAPHRAGMATIC HERNIA WITHOUT OBSTRUCTION 10/05/2017 BOCANEGRA DOJUAN C Ot R13.10 DYSPHAGIA, UNSPECIFIED 10/05/2017 BOCANEGRA DO, JUAN C Irvin Ot M51.36 OTHER INTERVERTEBRAL DISC DEGENERATION, 10/05/2017 BOCANEGRA DOJUAN C Ot Z98.1 ARTHRODESIS STATUS 10/05/2017 JUAN C BOCANEGRA DO Ot S79.911A UNSPECIFIED INJURY OF RIGHT HIP, INITIAL 10/05/2017 JUAN C BOCANEGRA DO Ot W19.XXXA UNSPECIFIED FALL, INITIAL ENCOUNTER 10/07/2017 JUAN C BOCANEGRA DO Ot R10.32 LEFT LOWER QUADRANT PAIN 10/15/2017 JUNA C BOCANEGRA DO Ot R10.32 LEFT LOWER QUADRANT PAIN Procedures There is no data. Results Test [...] measurement by glucometer (mass/volume) 116 mg/dL 70-110 Complete blood count (CBC) with automated white blood cell (WBC) differential - 05/19/18 14:08 Blood leukocytes automated count (number/volume) 7.2 10*3/uL 4.3-11.0 Blood erythrocytes automated count (number/volume) 3.97 10*6/uL 4.35-5.85 Venous blood hemoglobin measurement (mass/volume) 12.9 g/dL 11.5-16.0 Blood hematocrit (volume fraction) 39 % 35-52 Automated erythrocyte mean corpuscular volume 99 [foz_us] 80-99 Automated erythrocyte mean corpuscular hemoglobin (mass per erythrocyte) 32 pg 25-34 Automated erythrocyte mean corpuscular hemoglobin concentration measurement ( mass/volume) 33 g/dL 32-36 Automated erythrocyte distribution width ratio 15.2 % 10.0-14.5 Automated blood platelet count (count/volume) 195 10*3/uL 130-400 Automated blood platelet mean volume measurement 9.5 [foz_us] 7.4-10.4 Automated blood neutrophils/100 leukocytes 71 % 42-75 Automated blood lymphocytes/100 leukocytes 19 % 12-44 Blood monocytes/100 leukocytes 8 % 0-12 Automated blood eosinophils/100 leukocytes 1 % 0-10 Automated blood basophils/100 leukocytes 0 % 0-10 Blood neutrophils automated count (number/volume) 5.1 10*3 1.8-7.8 Blood lymphocytes automated count (number/volume) 1.4 10*3 1.0-4.0 Blood monocytes automated count (number/volume) 0.5 10*3 0.0-1.0 Automated eosinophil count 0.1 10*3/uL 0.0-0.3 Automated blood basophil count (count/volume) 0.0 10*3/uL 0.0-0.1 Comprehensive metabolic panel - 05/19/18 14:08 Serum or plasma sodium measurement (moles/volume) 140 mmol/L 135-145 Serum or plasma potassium measurement (moles/volume) 4.5 mmol/L 3.6-5.0 Serum or plasma chloride measurement (moles/volume) 105 mmol/L 98-107 Carbon dioxide 23 mmol/L 21-32 Serum or plasma anion gap determination (moles/volume) 12 mmol/L 5-14 Serum or plasma urea nitrogen measurement (mass/volume) 18 mg/dL 7-18 Serum or plasma creatinine measurement (mass/volume) 0.72 mg/dL 0.60-1.30 Serum or plasma urea nitrogen/creatinine mass ratio 25 NRG Serum or plasma creatinine measurement with calculation of estimated glomerular filtration rate > NRG Serum or plasma glucose measurement (mass/volume) 119 mg/dL 70-105 Serum or plasma calcium measurement (mass/volume) 9.4 mg/dL 8.5-10.1 Serum or plasma total bilirubin measurement (mass/volume) 1.0 mg/dL 0.1-1.0 Serum or plasma alkaline phosphatase measurement (enzymatic activity/volume) 74 U/L 40-136 Serum or plasma aspartate aminotransferase measurement (enzymatic activity/ volume) 31 U/L 5-34 Serum or plasma alanine aminotransferase measurement (enzymatic activity/volume ) 20 U/L 0-55 Serum or plasma protein measurement (mass/volume) 6.7 g/dL 6.4-8.2 Serum or plasma albumin measurement (mass/volume) 4.0 g/dL 3.2-4.5 CALCIUM CORRECTED 9.4 mg/dL 8.5-10.1 Serum or plasma creatine kinase measurement (enzymatic activity/volume) - 05/19 14:08 Serum or plasma creatine kinase measurement (enzymatic activity/volume) 110 U/L 29-168 Encounters ACCT No. Visit Date/Time Discharge Status Pt. Type Provider Facility Loc./Unit Complaint [id number] 10/06/2017 06:52:00 10/06/2017 23:59:59 CLS Outpatient JUAN C BOCANEGRA DO [facility] RAD LLQ PAIN [id number] 07/07/2017 21:50:00 07/09/2017 10:26:00 DIS Inpatient AKILAH GARCIA DO [facility] 4TH LEFT FLANK SHINGLES, GENERALIZED WEAKNESS [id number] 07/07/2017 14:37:00 07/07/2017 23:59:59 CLS Outpatient JUAN C BOCANEGRA DO [facility] RAD S79.911A [id number] 01/31/2017 10:16:00 01/31/2017 12:04:00 DIS Emergency ELDER PARRY DO [facility] ER FALL/R SHOULDER PAIN [id number] 12/09/2016 12:12:00 12/09/2016 23:59:59 CLS Outpatient BOCANEGRAJIMENA BRANTLEY JUAN C Albaro [facility] RAD TRAUMA [id number] 07/20/2016 10:30:00 07/20/2016 23:59:59 CLS Outpatient BOCANEGRA DOJUAN C Albaro [facility] RAD DYSPHAGIA [id number] 07/25/2014 06:30:00 07/25/2014 23:59:59 CLS Outpatient DALJIT BRANTLEY JUAN C Albaro [facility] CARD CHEST PAIN [id number] 12/07/2013 19:15:00 12/12/2013 13:20:00 DIS Inpatient JUAN C BOCANEGRA DO [facility] SURGICAL POST OP BACK PAIN [id number] 11/24/2013 11:58:00 11/29/2013 12:45:00 DIS Inpatient NOAH GARCIA MD [facility] IRF POST SURGERY [id number] 05/17/2013 14:59:00 05/17/2013 23:59:59 CLS Outpatient JUAN C BOCANEGRA DO [facility] RAD CALF PAIN [id number] 03/13/2013 15:32:00 2013 13:51:00 DIS Inpatient NOAH GARCIA MD [facility] IRF R TOTAL KNEE REPLACMENT THERAPY [id number] 11/21/2012 13:17:00 11/21/2012 23:59:59 CLS Outpatient JUAN C BOCANEGRA DO [facility] RAD SIX MONTH FOLLOW-UP [id number] 05/19/2018 13:48:00 ACT Emergency CAL BARTLETT MD [facility] ER FALL [id number] 07/23/2014 11:14:00 Document Registration [id number] 03/14/2012 12:58:00 Document Registration [id number] 09/09/2011 12:15:00 Document Registration [id number] 07/29/2011 10:13:00 Document Registration [id number] 02/10/2011 14:01:00 Document Registration [id number] 01/22/2011 13:07:00 Document Registration [id number] 10/02/2010 14:30:00 Document Registration [id number] 09/29/2010 10:55:00 Document Registration [id number] 09/25/2010 12:30:00 Document Registration [id number] 09/22/2010 10:00:00 Document Registration [id number] 09/14/2010 13:45:00 Document Registration [id number] 09/04/2009 14:54:00 Document Registration [id number] 07/22/2009 11:46:00 Document Registration [id number] 05/03/2009 14:09:00 Document Registration [id number] 04/26/2009 14:30:00 Document Registration [id number] 07/25/2014 06:32:08 ACT Document Registration
[2018-05-19] MEDS ORDERED: KETOROLAC 30 MG/ML VIAL IVP ONE (16:45)
--- NOTE | 2018-05-19 18:18 | Diagnostic Imaging Report ---
PROCEDURE: CT head and CT cervical spine without contrast. TECHNIQUE: Multiple contiguous axial images were obtained through the brain and cervical spine without the use of intravenous contrast. Sagittal and coronal reformations through the cervical spine were then performed. INDICATION: Traumatic head injury. Neck pain. COMPARISON: None FINDINGS - CT BRAIN: BRAIN: No parenchymal hemorrhage, midline shift or mass effect. Mistry-white matter differentiation is intact. No acute infarct. Moderate periventricular and subcortical low-density white matter changes. Moderate prominence of the ventricles and Sulci consistent with cortical and cerebellar parenchymal volume loss. CT head and cervical spine performed on 01/31/2017. EXTRA-AXIAL SPACES: No subdural or epidural collections. ORBITS AND PARANASAL SINUSES: Visualized orbits and globes are intact. Visualized paranasal sinuses and mastoid air cells are clear. CALVARIUM AND SOFT TISSUES: The calvarium is intact. No fractures or suspicious bony lesions. Small left supraorbital hematoma. FINDINGS - CT CERVICAL SPINE: SPINE: No fracture. No acute osseous abnormalities. There is unchanged fusion of the C5 and C6 vertebral bodies, with unchanged lytic area in the central portion of the fused vertebral bodies. This is likely developmental in nature and unchanged compared to prior exam. There is straightening of cervical lordosis. No subluxation. There is mild multilevel degenerative loss of disc height with endplate osteophytes. No locked or perched facet. SOFT TISSUES AND LUNG APICES: Soft tissues unremarkable. Mild biapical pleural-parenchymal scarring. IMPRESSION: - CT BRAIN: No acute intracranial pathology. No significant change from prior. IMPRESSION: - CT CERVICAL SPINE: Multilevel degenerative change of the cervical spine, without evidence of acute fracture or subluxation. Unchanged appearance of the C5-C6 vertebral bodies, which demonstrate fusion and central area of lucency. Dictated by: Dictated on workstation # [id number]
--- NOTE | 2018-05-19 18:23 | Diagnostic Imaging Report ---
INDICATION: Fall with back pain CT thoracic and lumbar spine obtained with axial slices without contrast and sagittal and coronal reconstructions. The thoracic and lumbar vertebrae show diffuse degenerative change throughout all levels with disc space narrowing and osteophyte formation. The patient has had previous fusion at L5-S1. There is no acute appearing bony abnormality. There is prominent facet degenerative change throughout the lower lumbar spine. 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 There is no overt acute compression deformity or acute fracture. There are postsurgical changes with fusion at L5-S1. Dictated by: Dictated on workstation # [id number]
[2018-05-19 19:10] VITALS: BP 154/92
== END 2018-05-19 19:09 | disposition home or self-care (01) ==
LOC: EDUNIT# 13:47 → ER 13:48
DX: S20.311A Abrasion of right front wall of thorax, initial encounter (principal); S20.312A Abrasion of left front wall of thorax, initial encounter; S20.419A Abrasion of unspecified back wall of thorax, initial encounter; R07.81 Pleurodynia; J44.9 Chronic obstructive pulmonary disease, unspecified; I10 Essential (primary) hypertension; M06.9 Rheumatoid arthritis, unspecified; G25.81 Restless legs syndrome; E03.9 Hypothyroidism, unspecified; R40.2142 Coma scale, eyes open, spontaneous, at arrival to emergency department; R40.2252 Coma scale, best verbal response, oriented, at arrival to emergency department; R40.2362 Coma scale, best motor response, obeys commands, at arrival to emergency department; E11.9 Type 2 diabetes mellitus without complications; Z87.19 Personal history of other diseases of the digestive system; Z87.448 Personal history of other diseases of urinary system; Z79.82 Long term (current) use of aspirin; Z80.6 Family history of leukemia; Z82.49 Family history of ischemic heart disease and other diseases of the circulatory system; Z90.710 Acquired absence of both cervix and uterus; Z90.89 Acquired absence of other organs; Z90.49 Acquired absence of other specified parts of digestive tract; W19.XXXA Unspecified fall, initial encounter
CPT/HCPCS: 36415; 70450; 71111; 72125; 72128; 72131; 80053; 82550; 85025